=== PATIENT | female | born 1975 | race African-American/Black ===

== ENCOUNTER 2019-09-13 06:31 | Observation (INO) ==
[2019-09-13] MEDS ORDERED: NITROGLYCERIN 2% OINT 1 INCH/GM PACK TOP STA (06:53)
[2019-09-13] MEDS ORDERED: ASPIRIN 325 MG TABLET PO STA (06:53)
[2019-09-13 07:30] LABS: Partial Thromboplastin Time 25.3 SECS (20.8-36.0)
[2019-09-13 08:40] LABS: Basophils % 0.4 % (0.0-0.8); Eosinophils # 0.1 10*3/uL (0.0-0.87); Eosinophils % 0.9 % (0.00-10.9); Hematocrit 38.8 VOL% (35.7-47.0); Hemoglobin 12.9 GM/DL (12.0-16.0); Immature Granulocytes % 0.4 %; Immature Granulocytes Absolute 0.03 #; Lymphocytes # 2.2 10*3/uL (1.4-4.0); Lymphocytes % 25.5 % (21.3-54.2); Mean Corpuscular HGB Conc 33.2 GM/DL (32-36); Mean Corpuscular Volume 81.3 FL (87-102); Mean Platelet Volume 10.2 FL (9.6-12.0); Monocytes % 10.4 % (1.7-12.7); Neutrophils % 62.4 % (38.7-73.9); Platelet Count 356 T/CUMM (130-400); Red Blood Count 4.77 MC/CUMM (3.8-5.5); Red Cell Distribution Width 16.9 % (9.3-17.3); White Blood Count 8.4 T/CUMM (4-12)
[2019-09-13 09:02] LABS: Alanine Aminotransferase 19 U/L (13-56); Alkaline Phosphatase 107 U/L (45-117); Aspartate Amino Transferase 13 U/L (0-37); Bilirubin,Total < 0.39 MG/DL (0.2-1.0); Blood Urea Nitrogen 10 MG/DL (7-18); Calcium 9.2 MG/DL (8.5-10.1); Estimated Glom Filtration Rate 106 ML/MIN; Glucose 130 MG/DL (74-106); Osmolality,Calculated 286.8 MOS/KG (273-304); Total Protein 7.8 G/DL (6.4-8.3)
[2019-09-13] MEDS ORDERED: NITROGLYCERIN SL 0.4 MG TABLET SL PRN (09:23)
[2019-09-13] MEDS ORDERED: NICOTINE 21 MG/24 HR PATCH TRANSDERM PRN (09:23)
[2019-09-13] MEDS ORDERED: DOCUSATE SODIUM 100 MG CAPSULE PO PRN (09:23)
[2019-09-13] MEDS ORDERED: ONDANSETRON 4 MG/2 ML VIAL IV PRN (09:23)
[2019-09-13] MEDS ORDERED: ALBUTEROL/IPRATROPIUM 3 ML NEB RESP TX PRN (09:44)
[2019-09-13 10:02] LABS: Risk Ratio 3.49; Thyroid Stimulating Hormone 4.86 uIU/ml (0.358-3.74); VLDL CHOLESTEROL 18.2 MG/DL
[2019-09-13] MEDS: FUROSEMIDE 40 MG/4 ML VIAL IV SCH (11:50)
[2019-09-13] MEDS: ENOXAPARIN 40 MG/0.4 ML SYRINGE SUBCUT SCH (11:51)
[2019-09-13] MEDS: ACETAMINOPHEN 325 MG TABLET PO PRN (11:52)
[2019-09-13] MEDS: METOPROLOL TARTRATE 50 MG TABLET PO SCH ×2 (11:53→20:42)
[2019-09-13] MEDS: LISINOPRIL 5 MG TABLET PO SCH (11:53)
[2019-09-13] MEDS ORDERED: MAGNESIUM SULF RIDER 4 GM in PREMIX 1 EACH IV PRN (12:10)
[2019-09-13] MEDS ORDERED: MAGNESIUM SULF RIDER 2 GM in PREMIX 1 EACH IV PRN (12:10)
[2019-09-13 13:21] LABS: Apearance,Urine CLEAR (Clear); Bacteria,Urine Occasional /HPF (Few); Bilirubin,Urine Negative (Negative); Blood, Urine Negative (Negative); Glucose,Urine (UA) Negative (Negative); Ketones,Urine Negative (Negative); Mucus,Urine Occasional /LPF (Occasional); Nitrite,Urine Negative (Negative); Protein,Urine Negative; RBC,Urine 3 /HPF (0-4); Squamous Epithelial Cell,Urine Occasional /HPF (0-10); Urine Color Yellow (Yellow); Urine Specific Gravity 1.017 (1.001-1.035); Urine Urobilinogen < 2.0 EU/DL (0.2-1.0); WBC,Urine <1 /HPF (0-6)
[2019-09-13 13:28] LABS: Barbiturates Screen,Urine Negative (Negative); Benzodiazepines Screen,Urine Negative (Negative); Cannabinoid Screen,Urine Negative (Negative); Opiate Screen,Urine Negative (Negative); Phencyclidine Screen,Urine Negative (Negative)
[2019-09-13] MEDS: POTASSIUM CHLORIDE 20 MEQ TABLET PO PRN ×3 (15:54→23:10)
[2019-09-13] MEDS: SIMVASTATIN 40 MG TABLET PO SCH (20:42)
[2019-09-13] MEDS: hydroCHLOROthiazide 25 MG TABLET PO SCH (20:42)
[2019-09-14 04:32] LABS: Basophils # 0.1 10*3/uL (0.0-0.2); Basophils % 1.4 % (0.0-0.8); Eosinophils # 0.2 10*3/uL (0.0-0.87); Eosinophils % 2.3 % (0.00-10.9); Hematocrit 39.3 VOL% (35.7-47.0); Hemoglobin 12.7 GM/DL (12.0-16.0); Immature Granulocytes % 0.3 %; Immature Granulocytes Absolute 0.02 #; Lymphocytes # 2.6 10*3/uL (1.4-4.0); Lymphocytes % 40.6 % (21.3-54.2); Mean Corpuscular HGB Conc 32.3 GM/DL (32-36); Mean Corpuscular Volume 81.5 FL (87-102); Mean Platelet Volume 9.6 FL (9.6-12.0); Monocytes % 10.5 % (1.7-12.7); NRBC # 0.04 10*3/uL; Neutrophils % 44.9 % (38.7-73.9); Platelet Count 348 T/CUMM (130-400); Red Blood Count 4.82 MC/CUMM (3.8-5.5); Red Cell Distribution Width 16.6 % (9.3-17.3); White Blood Count 6.4 T/CUMM (4-12)
[2019-09-14 05:02] LABS: Calcium 9.3 MG/DL (8.5-10.1); Osmolality,Calculated 283.1 MOS/KG (273-304)
[2019-09-14] MEDS: LISINOPRIL 5 MG TABLET PO SCH (08:57)
[2019-09-14] MEDS: METOPROLOL TARTRATE 50 MG TABLET PO SCH ×2 (08:57→20:43)
[2019-09-14] MEDS: PANTOPRAZOLE 40 MG TABLET PO SCH (08:57)
[2019-09-14] MEDS: ASPIRIN EC 81 MG TABLET PO SCH (08:57)
[2019-09-14] MEDS: ENOXAPARIN 40 MG/0.4 ML SYRINGE SUBCUT SCH (08:58)
[2019-09-14] MEDS: FUROSEMIDE 40 MG/4 ML VIAL IV SCH (08:58)
[2019-09-14] MEDS: DOXYCYCLINE HYCLATE 100 MG CAPSULE PO SCH (20:43)
[2019-09-14] MEDS: SIMVASTATIN 40 MG TABLET PO SCH (20:43)
[2019-09-14] MEDS: hydroCHLOROthiazide 25 MG TABLET PO SCH (20:43)
[2019-09-15 05:43] LABS: Basophils % 0.6 % (0.0-0.8); Eosinophils # 0.2 10*3/uL (0.0-0.87); Eosinophils % 2.3 % (0.00-10.9); Hematocrit 40.7 VOL% (35.7-47.0); Hemoglobin 13.2 GM/DL (12.0-16.0); Immature Granulocytes % 0.5 %; Immature Granulocytes Absolute 0.03 #; Lymphocytes # 2.4 10*3/uL (1.4-4.0); Lymphocytes % 36.5 % (21.3-54.2); Mean Corpuscular HGB Conc 32.4 GM/DL (32-36); Mean Corpuscular Volume 81.6 FL (87-102); Mean Platelet Volume 10.5 FL (9.6-12.0); Monocytes % 10.4 % (1.7-12.7); Neutrophils % 49.7 % (38.7-73.9); Platelet Count 349 T/CUMM (130-400); Red Blood Count 4.99 MC/CUMM (3.8-5.5); White Blood Count 6.6 T/CUMM (4-12)
[2019-09-15 05:58] LABS: Calcium 8.8 MG/DL (8.5-10.1); Osmolality,Calculated 280.5 MOS/KG (273-304)
[2019-09-15 07:53] VITALS: BP 150/83
[2019-09-15] MEDS: DOXYCYCLINE HYCLATE 100 MG CAPSULE PO SCH (08:35)
[2019-09-15] MEDS: PANTOPRAZOLE 40 MG TABLET PO SCH (08:35)
[2019-09-15] MEDS: METOPROLOL TARTRATE 50 MG TABLET PO SCH (08:35)
[2019-09-15] MEDS: LISINOPRIL 5 MG TABLET PO SCH (08:36)
[2019-09-15] MEDS: ACETAMINOPHEN 325 MG TABLET PO PRN (08:36)
[2019-09-15] MEDS: ASPIRIN EC 81 MG TABLET PO SCH (08:36)
[2019-09-15] MEDS: FUROSEMIDE 40 MG/4 ML VIAL IV SCH (08:37)
[2019-09-15] MEDS: ENOXAPARIN 40 MG/0.4 ML SYRINGE SUBCUT SCH (08:49)
== END 2019-09-15 11:30 | disposition home or self-care (01) ==
LOC: N.ED 06:31 → N.EDINP 06:31 → N.2W 11:04 → N.TELES 09-14 10:31
PROVIDERS: ADMIT Internal Medicine; ATTEND Internal Medicine

== ENCOUNTER 2020-02-12 10:16 | Observation (INO) ==
[2020-02-12 10:43] LABS: Basophils % 0.7 % (0.0-0.8); Eosinophils # 0.1 10*3/uL (0.0-0.87); Eosinophils % 0.9 % (0.00-10.9); Hematocrit 41.6 VOL% (35.7-47.0); Hemoglobin 14.1 GM/DL (12.0-16.0); Immature Granulocytes % 0.4 %; Immature Granulocytes Absolute 0.02 #; Lymphocytes # 1.7 10*3/uL (1.4-4.0); Lymphocytes % 29.9 % (21.3-54.2); Mean Corpuscular HGB Conc 33.9 GM/DL (32-36); Mean Corpuscular Volume 86.3 FL (87-102); Mean Platelet Volume 9.8 FL (9.6-12.0); Monocytes % 6.3 % (1.7-12.7); Neutrophils % 61.8 % (38.7-73.9); Platelet Count 322 T/CUMM (130-400); Red Blood Count 4.82 MC/CUMM (3.8-5.5); Red Cell Distribution Width 15.2 % (9.3-17.3); White Blood Count 5.6 T/CUMM (4-12)
[2020-02-12] MEDS ORDERED: SODIUM CHLORIDE 0.9% 500 ML IV STA (10:48)
[2020-02-12] MEDS ORDERED: ONDANSETRON 4 MG/2 ML VIAL IV STA (10:48)
[2020-02-12 11:10] LABS: Alanine Aminotransferase 28 U/L (13-56); Albumin 3.3 G/DL (3.4-5.0); Alkaline Phosphatase 85 U/L (45-117); Aspartate Amino Transferase 16 U/L (0-37); Bilirubin,Total < 0.39 MG/DL (0.2-1.0); Blood Urea Nitrogen 11 MG/DL (7-18); Calcium 9.1 MG/DL (8.5-10.1); Estimated Glom Filtration Rate 117 ML/MIN; Glucose 101 MG/DL (74-106); Osmolality,Calculated 279.3 MOS/KG (273-304)
[2020-02-12 12:08] LABS: Apearance,Urine Slightly Hazy (Clear); Bacteria,Urine Occasional /HPF (Few); Bilirubin,Urine Negative (Negative); Blood, Urine Negative (Negative); Glucose,Urine (UA) Negative (Negative); Ketones,Urine Negative (Negative); Mucus,Urine Occasional /LPF (Occasional); Nitrite,Urine Negative (Negative); Protein,Urine Negative; RBC,Urine 1 /HPF (0-4); Squamous Epithelial Cell,Urine Occasional /HPF (0-10); Urine Color Yellow (Yellow); Urine Specific Gravity 1.013 (1.001-1.035); Urine Urobilinogen < 2.0 EU/DL (0.2-1.0); WBC,Urine 2 /HPF (0-6)
[2020-02-12] MEDS ORDERED: METHOCARBAMOL 1,000 MG/10 ML VIAL IV STA (12:14)
[2020-02-12] MEDS ORDERED: KETOROLAC 30 MG/1 ML VIAL IV STA (12:14)
[2020-02-12 12:24] LABS: Barbiturates Screen,Urine Negative (Negative); Benzodiazepines Screen,Urine Negative (Negative); Cannabinoid Screen,Urine Negative (Negative); Opiate Screen,Urine Negative (Negative); Phencyclidine Screen,Urine Negative (Negative)
[2020-02-12] MEDS ORDERED: ASPIRIN EC 325 MG TABLET PO STA (12:26)
[2020-02-12] MEDS ORDERED: ZALEPLON 5 MG CAPSULE PO PRN (13:12)
[2020-02-12] MEDS ORDERED: ACETAMINOPHEN 325 MG TABLET PO PRN (13:12)
[2020-02-12] MEDS ORDERED: DOCUSATE SODIUM 100 MG CAPSULE PO PRN (13:12)
[2020-02-12] MEDS ORDERED: ONDANSETRON 4 MG/2 ML VIAL IV PRN (13:12)
[2020-02-12] MEDS ORDERED: hydrALAZINE 20 MG/1 ML VIAL IV PRN (13:39)
[2020-02-12 14:09] LABS: Risk Ratio 2.62; Thyroid Stimulating Hormone 3.09 uIU/ml (0.358-3.74); VLDL CHOLESTEROL 9.6 MG/DL
[2020-02-12] MEDS: ENOXAPARIN 40 MG/0.4 ML SYRINGE SUBCUT SCH (15:33)
[2020-02-12] MEDS: ALBUTEROL/IPRATROPIUM 3 ML NEB RESP TX SCH ×2 (16:53→20:08)
[2020-02-12 17:04] LABS: Folate 12.5 NG/ML (5.4-24.0)
[2020-02-12] MEDS: FUROSEMIDE 20 MG/2 ML VIAL IV SCH (17:39)
[2020-02-12] MEDS: LEVOFLOXACIN 750 MG TABLET PO SCH (17:39)
[2020-02-12] MEDS: ASCORBIC ACID 500 MG TABLET PO SCH (20:11)
[2020-02-12] MEDS ORDERED: SIMVASTATIN 20 MG TABLET PO SCH (21:00)
[2020-02-12] MEDS ORDERED: amLODIPine 5 MG TABLET PO SCH (21:00)
[2020-02-12] MEDS ORDERED: SERTRALINE 50 MG TABLET PO SCH (21:00)
[2020-02-12] MEDS ORDERED: NF- (Fluticasone Furoate-Vilanterol [Breo Ellipta] 1 inh) INH SCH (21:00)
[2020-02-13] MEDS: ALBUTEROL/IPRATROPIUM 3 ML NEB RESP TX SCH ×3 (01:25→13:33)
[2020-02-13 04:42] LABS: Basophils # 0.1 10*3/uL (0.0-0.2); Basophils % 0.9 % (0.0-0.8); Eosinophils # 0.2 10*3/uL (0.0-0.87); Eosinophils % 2.8 % (0.00-10.9); Hematocrit 42.1 VOL% (35.7-47.0); Hemoglobin 13.7 GM/DL (12.0-16.0); Immature Granulocytes % 0.2 %; Immature Granulocytes Absolute 0.01 #; Mean Corpuscular HGB Conc 32.5 GM/DL (32-36); Mean Corpuscular Volume 88.4 FL (87-102); Mean Platelet Volume 10.2 FL (9.6-12.0); Monocytes % 10.1 % (1.7-12.7); Platelet Count 318 T/CUMM (130-400); Red Blood Count 4.76 MC/CUMM (3.8-5.5); White Blood Count 5.8 T/CUMM (4-12)
[2020-02-13 04:58] LABS: Osmolality,Calculated 279.4 MOS/KG (273-304)
[2020-02-13] MEDS ORDERED: PANTOPRAZOLE 40 MG TABLET PO SCH (09:00)
[2020-02-13] MEDS ORDERED: FERROUS SULFATE 325 MG TABLET PO SCH (09:00)
[2020-02-13] MEDS ORDERED: MAGNESIUM OXIDE 400 MG TABLET PO SCH (09:00)
[2020-02-13] MEDS: FUROSEMIDE 20 MG/2 ML VIAL IV SCH ×2 (09:55→18:03)
[2020-02-13] MEDS: ASCORBIC ACID 500 MG TABLET PO SCH (09:57)
[2020-02-13] MEDS: LEVOFLOXACIN 750 MG TABLET PO SCH (09:57)
[2020-02-13] MEDS: ENOXAPARIN 40 MG/0.4 ML SYRINGE SUBCUT SCH (13:13)
[2020-02-13 16:09] VITALS: BP 137/85
[2020-02-16] MEDS ORDERED: ERGOCALCIFEROL 50,000 UNIT CAPSULE PO SCH (13:07)
== END 2020-02-13 18:03 | disposition home or self-care (01) ==
LOC: N.ED 10:16 → N.EDINP 10:16 → N.2W 13:15
PROVIDERS: ADMIT Internal Medicine; ATTEND Internal Medicine

== ENCOUNTER 2020-02-22 14:30 | Inpatient (IN) ==
[2020-02-22 15:18] LABS: Basophils # 0.1 10*3/uL (0.0-0.2); Basophils % 0.5 % (0.0-0.8); Eosinophils # 0.1 10*3/uL (0.0-0.87); Eosinophils % 0.5 % (0.00-10.9); Hematocrit 40.5 VOL% (35.7-47.0); Hemoglobin 13.4 GM/DL (12.0-16.0); Immature Granulocytes % 0.5 %; Immature Granulocytes Absolute 0.05 #; Lymphocytes # 2.1 10*3/uL (1.4-4.0); Lymphocytes % 22.4 % (21.3-54.2); Mean Corpuscular HGB Conc 33.1 GM/DL (32-36); Mean Corpuscular Volume 87.5 FL (87-102); Mean Platelet Volume 10.2 FL (9.6-12.0); Monocytes % 6.9 % (1.7-12.7); Neutrophils % 69.2 % (38.7-73.9); Platelet Count 331 T/CUMM (130-400); Red Blood Count 4.63 MC/CUMM (3.8-5.5); Red Cell Distribution Width 15.2 % (9.3-17.3); White Blood Count 9.5 T/CUMM (4-12)
[2020-02-22 15:43] LABS: Albumin 3.4 G/DL (3.4-5.0); Bilirubin,Total 0.4 MG/DL (0.2-1.0); Osmolality,Calculated 274.7 MOS/KG (273-304); Total Protein 7.5 G/DL (6.4-8.3)
[2020-02-22] MEDS ORDERED: cefTRIAXone 1,000 MG in SODIUM CHLORIDE 0.9% 100 ML IV STA (16:49)
[2020-02-22] MEDS ORDERED: AZITHROMYCIN 250 MG TABLET PO STA (16:49)
[2020-02-22] MEDS ORDERED: GLUCAGON 1 MG VIAL IM PRN (18:15)
[2020-02-22] MEDS ORDERED: DEXTROSE 10% 250 ML BAG IV PRN (18:15)
[2020-02-22] MEDS ORDERED: hydrALAZINE 20 MG/1 ML VIAL IV PRN (18:49)
[2020-02-22] MEDS ORDERED: HYDROXYCHLOROQUINE 200 MG TABLET PO SCH (20:00)
[2020-02-22] MEDS ORDERED: amLODIPine 5 MG TABLET PO SCH (21:00)
[2020-02-22] MEDS: SIMVASTATIN 20 MG TABLET PO SCH (21:30)
[2020-02-22] MEDS: ASCORBIC ACID 500 MG TABLET PO SCH (21:30)
[2020-02-22] MEDS: SERTRALINE 50 MG TABLET PO SCH (22:16)
[2020-02-22] MEDS: Fluticasone Furoate-Vilanterol [Breo Ellipta] 1 inh INH SCH (22:16)
[2020-02-23 06:44] LABS: Albumin 2.7 G/DL (3.4-5.0); Bilirubin,Total 0.6 MG/DL (0.2-1.0); Calcium 8.9 MG/DL (8.5-10.1); Osmolality,Calculated 272.7 MOS/KG (273-304)
[2020-02-23] MEDS ORDERED: predniSONE 20 MG TABLET PO SCH (09:00)
[2020-02-23] MEDS ORDERED: ERGOCALCIFEROL 50,000 UNIT CAPSULE PO SCH (09:00)
[2020-02-23] MEDS: MAGNESIUM OXIDE 400 MG TABLET PO SCH (11:16)
[2020-02-23] MEDS: FERROUS SULFATE 325 MG TABLET PO SCH (11:16)
[2020-02-23] MEDS: ASPIRIN EC 325 MG TABLET PO SCH (11:16)
[2020-02-23] MEDS: ASCORBIC ACID 500 MG TABLET PO SCH ×2 (11:17→21:16)
[2020-02-23] MEDS: AZITHROMYCIN 250 MG TABLET PO SCH (11:17)
[2020-02-23 13:24] LABS: Basophils # 0.1 10*3/uL (0.0-0.2); Basophils % 0.8 % (0.0-0.8); Eosinophils # 0.1 10*3/uL (0.0-0.87); Eosinophils % 2.2 % (0.00-10.9); Hematocrit 40.4 VOL% (35.7-47.0); Hemoglobin 13.1 GM/DL (12.0-16.0); Immature Granulocytes % 0.3 %; Immature Granulocytes Absolute 0.02 #; Lymphocytes # 1.9 10*3/uL (1.4-4.0); Lymphocytes % 31.3 % (21.3-54.2); Mean Corpuscular HGB Conc 32.4 GM/DL (32-36); Mean Corpuscular Volume 88.8 FL (87-102); Mean Platelet Volume 9.9 FL (9.6-12.0); Neutrophils % 57.4 % (38.7-73.9); Platelet Count 327 T/CUMM (130-400); Red Blood Count 4.55 MC/CUMM (3.8-5.5); Red Cell Distribution Width 15.2 % (9.3-17.3)
[2020-02-23] MEDS: ALUMINUM/MAGNES/SIMETH MAX STR 30 ML UDCUP PO PRN (13:54)
[2020-02-23] MEDS: amLODIPine 5 MG TABLET PO SCH (13:54)
[2020-02-23] MEDS ORDERED: KETOROLAC 10 MG TABLET PO PRN (15:24)
[2020-02-23] MEDS ORDERED: ACETAMINOPHEN 325 MG TABLET PO PRN (16:58)
[2020-02-23] MEDS: SIMVASTATIN 20 MG TABLET PO SCH (21:16)
[2020-02-23] MEDS: SERTRALINE 50 MG TABLET PO SCH (21:16)
[2020-02-23] MEDS: Fluticasone Furoate-Vilanterol [Breo Ellipta] 1 inh INH SCH (21:16)
[2020-02-24] MEDS: ALUMINUM/MAGNES/SIMETH MAX STR 30 ML UDCUP PO PRN ×3 (00:44→20:21)
[2020-02-24 05:06] LABS: Basophils % 0.7 % (0.0-0.8); Eosinophils # 0.1 10*3/uL (0.0-0.87); Eosinophils % 2.4 % (0.00-10.9); Hematocrit 39.4 VOL% (35.7-47.0); Hemoglobin 12.9 GM/DL (12.0-16.0); Immature Granulocytes % 0.4 %; Immature Granulocytes Absolute 0.02 #; Lymphocytes # 2.5 10*3/uL (1.4-4.0); Lymphocytes % 45.3 % (21.3-54.2); Mean Corpuscular HGB Conc 32.7 GM/DL (32-36); Mean Corpuscular Volume 88.5 FL (87-102); Mean Platelet Volume 10.3 FL (9.6-12.0); Monocytes % 11.3 % (1.7-12.7); Neutrophils % 39.9 % (38.7-73.9); Platelet Count 322 T/CUMM (130-400); Red Blood Count 4.45 MC/CUMM (3.8-5.5); Red Cell Distribution Width 15.1 % (9.3-17.3); White Blood Count 5.5 T/CUMM (4-12)
[2020-02-24 05:36] LABS: Albumin 2.9 G/DL (3.4-5.0); Bilirubin,Total 0.6 MG/DL (0.2-1.0); Calcium 8.9 MG/DL (8.5-10.1); Osmolality,Calculated 276.5 MOS/KG (273-304); Total Protein 6.8 G/DL (6.4-8.3)
[2020-02-24] MEDS: AZITHROMYCIN 250 MG TABLET PO SCH (08:52)
[2020-02-24] MEDS: FERROUS SULFATE 325 MG TABLET PO SCH (08:52)
[2020-02-24] MEDS: MAGNESIUM OXIDE 400 MG TABLET PO SCH (08:52)
[2020-02-24] MEDS: ASPIRIN EC 325 MG TABLET PO SCH (08:52)
[2020-02-24] MEDS: amLODIPine 5 MG TABLET PO SCH (08:52)
[2020-02-24] MEDS: ASCORBIC ACID 500 MG TABLET PO SCH ×2 (08:52→20:21)
[2020-02-24] MEDS ORDERED: CALCIUM CARBONATE CHEW 500 MG TABLET PO ONE (17:01)
[2020-02-24] MEDS: SIMVASTATIN 20 MG TABLET PO SCH (20:21)
[2020-02-24] MEDS: SERTRALINE 50 MG TABLET PO SCH (20:21)
[2020-02-24] MEDS: Fluticasone Furoate-Vilanterol [Breo Ellipta] 1 inh INH SCH (20:21)
[2020-02-25 05:24] LABS: Basophils # 0.1 10*3/uL (0.0-0.2); Basophils % 0.8 % (0.0-0.8); Eosinophils # 0.2 10*3/uL (0.0-0.87); Eosinophils % 2.8 % (0.00-10.9); Hematocrit 38.8 VOL% (35.7-47.0); Immature Granulocytes % 0.2 %; Immature Granulocytes Absolute 0.01 #; Lymphocytes # 2.4 10*3/uL (1.4-4.0); Lymphocytes % 39.5 % (21.3-54.2); Mean Corpuscular HGB Conc 33.5 GM/DL (32-36); Mean Platelet Volume 10.3 FL (9.6-12.0); Monocytes % 10.9 % (1.7-12.7); Neutrophils % 45.8 % (38.7-73.9); Platelet Count 321 T/CUMM (130-400); Red Blood Count 4.46 MC/CUMM (3.8-5.5); White Blood Count 6.1 T/CUMM (4-12)
[2020-02-25 05:45] LABS: Albumin 2.8 G/DL (3.4-5.0); Bilirubin,Total 0.5 MG/DL (0.2-1.0); Calcium 8.7 MG/DL (8.5-10.1); Osmolality,Calculated 279.3 MOS/KG (273-304); Total Protein 6.8 G/DL (6.4-8.3)
[2020-02-25 07:33] VITALS: BP 132/89
[2020-02-25] MEDS: ASPIRIN EC 325 MG TABLET PO SCH (08:16)
[2020-02-25] MEDS: amLODIPine 5 MG TABLET PO SCH (08:16)
[2020-02-25] MEDS: MAGNESIUM OXIDE 400 MG TABLET PO SCH (08:16)
[2020-02-25] MEDS: AZITHROMYCIN 250 MG TABLET PO SCH (08:16)
[2020-02-25] MEDS: FERROUS SULFATE 325 MG TABLET PO SCH (08:16)
[2020-02-25] MEDS: ASCORBIC ACID 500 MG TABLET PO SCH (08:16)
[2020-02-25] MEDS ORDERED: PANTOPRAZOLE 40 MG TABLET PO SCH (09:00)
[2020-02-25] MEDS: ALUMINUM/MAGNES/SIMETH MAX STR 30 ML UDCUP PO PRN (12:57)
== END 2020-02-25 13:15 | disposition home or self-care (01) | DRG 204 ==
LOC: N.ED 14:30 → N.EDINP 17:00 → SUATTDRO 17:00 → N.2E 17:45
PROVIDERS: ADMIT Internal Medicine; ATTEND Internal Medicine

== ENCOUNTER 2020-04-30 01:35 | Observation (INO) ==
[2020-04-30] MEDS ORDERED: ASPIRIN 325 MG TABLET PO STA (02:01)
[2020-04-30 02:16] LABS: Basophils % 0.6 % (0.0-0.8); Eosinophils # 0.2 10*3/uL (0.0-0.87); Eosinophils % 2.4 % (0.00-10.9); Hematocrit 39.5 VOL% (35.7-47.0); Hemoglobin 13.1 GM/DL (12.0-16.0); Immature Granulocytes % 0.2 %; Immature Granulocytes Absolute 0.01 #; Lymphocytes # 2.5 10*3/uL (1.4-4.0); Mean Corpuscular HGB Conc 33.2 GM/DL (32-36); Mean Corpuscular Volume 86.6 FL (87-102); Mean Platelet Volume 10.1 FL (9.6-12.0); Monocytes % 7.7 % (1.7-12.7); Neutrophils % 49.1 % (38.7-73.9); Platelet Count 319 T/CUMM (130-400); Red Blood Count 4.56 MC/CUMM (3.8-5.5); Red Cell Distribution Width 13.9 % (9.3-17.3); White Blood Count 6.3 T/CUMM (4-12)
[2020-04-30 02:22] LABS: INR 1.1; PT Patient Result 11.2 SECS (9.8-11.9)
[2020-04-30 02:43] LABS: Alanine Aminotransferase 25 U/L (13-56); Albumin 3.2 G/DL (3.4-5.0); Alkaline Phosphatase 107 U/L (45-117); Aspartate Amino Transferase 20 U/L (0-37); Bilirubin,Total < 0.39 MG/DL (0.2-1.0); Blood Urea Nitrogen 10 MG/DL (7-18); Calcium 8.7 MG/DL (8.5-10.1); Estimated Glom Filtration Rate 118 ML/MIN; Glucose 107 MG/DL (74-106); Osmolality,Calculated 273.7 MOS/KG (273-304); Total Protein 7.7 G/DL (6.4-8.3)
[2020-04-30] MEDS ORDERED: POTASSIUM CHLORIDE 20 MEQ TABLET PO STA (02:50)
[2020-04-30 02:58] LABS: Ferritin 76.1 ng/ml (8-252)
[2020-04-30] MEDS ORDERED: MAGNESIUM SULF RIDER 2 GM in PREMIX 1 EACH IV PRN (10:34)
[2020-04-30] MEDS ORDERED: ALBUTEROL/IPRATROPIUM 3 ML NEB RESP TX SCH (10:34)
[2020-04-30] MEDS ORDERED: DOCUSATE SODIUM 100 MG CAPSULE PO PRN (10:34)
[2020-04-30] MEDS ORDERED: ACETAMINOPHEN 325 MG TABLET PO PRN (10:34)
[2020-04-30] MEDS ORDERED: MAGNESIUM SULF RIDER 4 GM in PREMIX 1 EACH IV PRN (10:34)
[2020-04-30] MEDS ORDERED: NITROGLYCERIN SL 0.4 MG TABLET SL PRN (10:34)
[2020-04-30] MEDS ORDERED: ONDANSETRON 4 MG/2 ML VIAL IV PRN (10:34)
[2020-04-30 10:35] LABS: ABG HCO3 24.5 MMOL/L (20-26); ABG Oxygen Saturation 97.9 % (95-100); ABG PCO2 39.2 MM HG (35-48); ABG PH 7.413 (7.35-7.45); ABG PO2 111.2 MM HG (80-95); ABG TCO2 25.7 MMOL/L (23-27)
[2020-04-30 10:56] LABS: Thyroid Stimulating Hormone 2.51 uIU/ml (0.358-3.74)
[2020-04-30] MEDS: ENOXAPARIN 40 MG/0.4 ML SYRINGE SUBCUT SCH (13:52)
[2020-04-30] MEDS: PANTOPRAZOLE 40 MG TABLET PO SCH (13:53)
[2020-04-30] MEDS ORDERED: FUROSEMIDE 40 MG/4 ML VIAL IV ONE (18:00)
[2020-04-30] MEDS: POTASSIUM CHLORIDE 20 MEQ TABLET PO PRN ×2 (19:50→22:45)
[2020-04-30] MEDS: SIMVASTATIN 20 MG TABLET PO SCH (21:01)
[2020-04-30] MEDS: ASCORBIC ACID 500 MG TABLET PO SCH (21:01)
[2020-04-30] MEDS: amLODIPine 5 MG TABLET PO SCH (21:01)
[2020-05-01] MEDS: POTASSIUM CHLORIDE 20 MEQ TABLET PO PRN ×2 (00:37→04:45)
[2020-05-01 07:06] LABS: Basophils % 0.6 % (0.0-0.8); Eosinophils # 0.2 10*3/uL (0.0-0.87); Eosinophils % 3.3 % (0.00-10.9); Hematocrit 40.5 VOL% (35.7-47.0); Hemoglobin 13.4 GM/DL (12.0-16.0); Immature Granulocytes % 0.2 %; Immature Granulocytes Absolute 0.01 #; Lymphocytes # 2.6 10*3/uL (1.4-4.0); Lymphocytes % 47.8 % (21.3-54.2); Mean Corpuscular HGB Conc 33.1 GM/DL (32-36); Mean Corpuscular Volume 87.1 FL (87-102); Mean Platelet Volume 10.6 FL (9.6-12.0); Monocytes % 11.5 % (1.7-12.7); Neutrophils % 36.6 % (38.7-73.9); Platelet Count 313 T/CUMM (130-400); Red Blood Count 4.65 MC/CUMM (3.8-5.5); Red Cell Distribution Width 14.6 % (9.3-17.3); White Blood Count 5.4 T/CUMM (4-12)
[2020-05-01 07:20] LABS: Osmolality,Calculated 276.4 MOS/KG (273-304)
[2020-05-01 07:48] LABS: Anisocytosis Slight; Eosinophils 3 % (0-10); Lymphocytes 50 % (20-55); Macrocytosis 1+; Platelet Estimate Normal; Segmented Neutrophils 37 % (50-85); Target Cells Few; Total Cells Counted 100
[2020-05-01] MEDS: ASPIRIN CHEW 81 MG TABLET PO SCH (08:21)
[2020-05-01] MEDS: PANTOPRAZOLE 40 MG TABLET PO SCH (08:21)
[2020-05-01] MEDS: FERROUS SULFATE 325 MG TABLET PO SCH (08:22)
[2020-05-01] MEDS: ASCORBIC ACID 500 MG TABLET PO SCH ×2 (08:22→21:00)
[2020-05-01] MEDS: ENOXAPARIN 40 MG/0.4 ML SYRINGE SUBCUT SCH (08:22)
[2020-05-01] MEDS: GABAPENTIN 100 MG CAPSULE PO SCH ×2 (15:15→21:00)
[2020-05-01] MEDS ORDERED: MAGNESIUM CITRATE 300 ML BOTTLE PO ONE (17:30)
[2020-05-01] MEDS: SIMVASTATIN 20 MG TABLET PO SCH (21:00)
[2020-05-01] MEDS: amLODIPine 5 MG TABLET PO SCH (21:00)
[2020-05-02] MEDS: ASCORBIC ACID 500 MG TABLET PO SCH (09:40)
[2020-05-02] MEDS: ASPIRIN CHEW 81 MG TABLET PO SCH (09:41)
[2020-05-02] MEDS: FERROUS SULFATE 325 MG TABLET PO SCH (09:41)
[2020-05-02] MEDS: ENOXAPARIN 40 MG/0.4 ML SYRINGE SUBCUT SCH (09:41)
[2020-05-02] MEDS: GABAPENTIN 100 MG CAPSULE PO SCH (09:41)
[2020-05-02] MEDS: PANTOPRAZOLE 40 MG TABLET PO SCH (09:41)
[2020-05-02 09:52] VITALS: BP 149/93
[2020-05-02] MEDS ORDERED: ALUM/MAG/SIMETH/LIDO VISC 1:1 30 ML BOTTLE PO ONE (10:25)
== END 2020-05-02 13:42 | disposition home or self-care (01) ==
LOC: N.EDINP 01:35 → N.ED 01:35 → N.2E 10:24
PROVIDERS: ADMIT Family Medicine; ATTEND Family Medicine

== ENCOUNTER 2020-07-31 01:19 | Observation (INO) ==
[2020-07-31] MEDS ORDERED: HYDROmorphone 2 MG/1 ML VIAL IV STA (01:43)
[2020-07-31] MEDS ORDERED: ASPIRIN 325 MG TABLET PO STA (01:43)
[2020-07-31] MEDS ORDERED: ALUM/MAG/SIMETH/LIDO VISC 1:1 30 ML BOTTLE PO STA (01:43)
[2020-07-31] MEDS ORDERED: NITROGLYCERIN 2% OINT 1 INCH/GM PACK TOP STA (01:43)
[2020-07-31] MEDS ORDERED: ONDANSETRON 4 MG/2 ML VIAL IV STA (01:43)
[2020-07-31 02:04] LABS: Basophils % 0.4 % (0.0-0.8); Eosinophils # 0.1 10*3/uL (0.0-0.87); Eosinophils % 1.3 % (0.00-10.9); Hematocrit 39.9 VOL% (35.7-47.0); Hemoglobin 13.6 GM/DL (12.0-16.0); Immature Granulocytes % 0.5 %; Immature Granulocytes Absolute 0.05 #; Lymphocytes % 29.9 % (21.3-54.2); Mean Corpuscular HGB Conc 34.1 GM/DL (32-36); Mean Corpuscular Volume 87.5 FL (87-102); Mean Platelet Volume 10.7 FL (9.6-12.0); Monocytes % 6.4 % (1.7-12.7); Neutrophils % 61.5 % (38.7-73.9); Platelet Count 356 T/CUMM (130-400); Red Blood Count 4.56 MC/CUMM (3.8-5.5); Red Cell Distribution Width 14.7 % (9.3-17.3); White Blood Count 9.9 T/CUMM (4-12)
[2020-07-31 02:21] LABS: INR 1.1; PT Patient Result 11.7 SECS (9.8-11.9)
[2020-07-31 02:46] LABS: Alanine Aminotransferase 21 U/L (13-56); Albumin 3.1 G/DL (3.4-5.0); Alkaline Phosphatase 108 U/L (45-117); Aspartate Amino Transferase 12 U/L (0-37); Bilirubin,Total < 0.39 MG/DL (0.2-1.0); Blood Urea Nitrogen 14 MG/DL (7-18); Estimated Glom Filtration Rate 136 ML/MIN; Glucose 101 MG/DL (74-106); Osmolality,Calculated 281.3 MOS/KG (273-304); Total Protein 7.6 G/DL (6.4-8.3)
[2020-07-31] MEDS ORDERED: ONDANSETRON 4 MG/2 ML VIAL IV PRN (03:33)
[2020-07-31] MEDS ORDERED: DEXTROSE 50% 25 GM/50 ML VIAL IV PRN (03:33)
[2020-07-31] MEDS ORDERED: GLUCAGON 1 MG VIAL IM PRN (03:33)
[2020-07-31 04:53] LABS: Risk Ratio 2.63; VLDL CHOLESTEROL 13.8 MG/DL
[2020-07-31] MEDS ORDERED: FUROSEMIDE 40 MG TABLET PO PRN (07:49)
[2020-07-31] MEDS ORDERED: diphenhydrAMINE CAP 25 MG CAPSULE PO PRN (07:49)
[2020-07-31] MEDS ORDERED: PROMETHAZINE 25 MG TABLET PO PRN (07:49)
[2020-07-31] MEDS ORDERED: ENOXAPARIN 120 MG/0.8 ML SYRINGE SUBCUT STA (08:32)
[2020-07-31] MEDS: ENOXAPARIN 100 MG/ML SYRINGE SUBCUT STA ×2 (08:32→16:54)
[2020-07-31] MEDS: NITROGLYCERIN 2% OINT 1 INCH/GM PACK TOP SCH ×2 (08:47→13:36)
[2020-07-31] MEDS: POTASSIUM CHLORIDE 20 MEQ PACK PO SCH ×2 (08:55→21:36)
[2020-07-31] MEDS: ASPIRIN EC 325 MG TABLET PO SCH (08:55)
[2020-07-31] MEDS ORDERED: PANTOPRAZOLE 40 MG TABLET PO SCH (09:00)
[2020-07-31 09:57] LABS: Barbiturates Screen,Urine Negative (Negative); Benzodiazepines Screen,Urine Negative (Negative); Cannabinoid Screen,Urine Negative (Negative); Opiate Screen,Urine Positive (Negative); Phencyclidine Screen,Urine Negative (Negative)
[2020-07-31] MEDS ORDERED: ALBUTEROL 2.5 MG/3 ML NEB RESP TX PRN (11:08)
[2020-07-31] MEDS ORDERED: KETOROLAC 15 MG/1 ML VIAL IV PRN (16:53)
[2020-07-31] MEDS: ENOXAPARIN 150 MG/ML SYRINGE SUBCUT SCH (17:18)
[2020-07-31] MEDS ORDERED: BREO INH SCH (21:00)
[2020-07-31] MEDS ORDERED: amLODIPine 5 MG TABLET PO SCH (21:00)
[2020-07-31] MEDS ORDERED: SIMVASTATIN 20 MG TABLET PO SCH (21:00)
[2020-07-31] MEDS: PANTOPRAZOLE 40 MG TABLET PO SCH (21:36)
[2020-07-31] MEDS: ASCORBIC ACID 500 MG TABLET PO SCH (21:36)
[2020-07-31] MEDS: GABAPENTIN 100 MG CAPSULE PO SCH (21:36)
[2020-08-01] MEDS: ENOXAPARIN 150 MG/ML SYRINGE SUBCUT SCH (02:26)
[2020-08-01] MEDS ORDERED: ENOXAPARIN 40 MG/0.4 ML SYRINGE SUBCUT SCH (07:30)
[2020-08-01] MEDS ORDERED: MAGNESIUM OXIDE 400 MG TABLET PO SCH (09:00)
[2020-08-01] MEDS: GABAPENTIN 100 MG CAPSULE PO SCH (10:34)
[2020-08-01] MEDS: POTASSIUM CHLORIDE 20 MEQ PACK PO SCH (10:34)
[2020-08-01] MEDS: ASPIRIN EC 325 MG TABLET PO SCH (10:35)
[2020-08-01] MEDS: PANTOPRAZOLE 40 MG TABLET PO SCH (10:35)
[2020-08-01] MEDS: ASCORBIC ACID 500 MG TABLET PO SCH (10:35)
[2020-08-01 11:30] VITALS: BP 112/70
[2020-08-02] MEDS ORDERED: ERGOCALCIFEROL 50,000 UNIT CAPSULE PO SCH (09:00)
[2020-08-02] MEDS ORDERED: FERROUS SULFATE 325 MG TABLET PO SCH (21:00)
== END 2020-08-01 12:49 | disposition home or self-care (01) ==
LOC: N.EDINP 01:19 → N.ED 01:19 → N.EDINP 15:48 → N.TELEN 16:11
PROVIDERS: ADMIT Emergency Medicine; ATTEND Emergency Medicine

== ENCOUNTER 2021-02-15 04:19 | Observation (INO) ==
[2021-02-15] MEDS ORDERED: ASPIRIN 325 MG TABLET PO STA (04:38)
[2021-02-15 04:47] LABS: Basophils # 0.1 10*3/uL (0.0-0.2); Basophils % 0.7 % (0.0-0.8); Eosinophils # 0.1 10*3/uL (0.0-0.87); Eosinophils % 1.9 % (0.00-10.9); Hematocrit 41.2 VOL% (35.7-47.0); Immature Granulocytes % 0.3 %; Immature Granulocytes Absolute 0.02 #; Lymphocytes # 3.2 10*3/uL (1.4-4.0); Lymphocytes % 43.1 % (21.3-54.2); Mean Corpuscular Volume 86.2 FL (87-102); Mean Platelet Volume 9.7 FL (9.6-12.0); Platelet Count 310 T/CUMM (130-400); Red Blood Count 4.78 MC/CUMM (3.8-5.5); Red Cell Distribution Width 14.1 % (9.3-17.3); White Blood Count 7.5 T/CUMM (4-12)
[2021-02-15 04:57] LABS: INR 1.1
[2021-02-15] MEDS: NITROGLYCERIN SL 0.4 MG TABLET SL PRN ×2 (05:00→05:05)
[2021-02-15 05:17] LABS: Hypochromasia Slight; Microcytosis Slight; Platelet Estimate Adequate
[2021-02-15] MEDS ORDERED: ONDANSETRON 4 MG/2 ML VIAL ONE (05:17)
[2021-02-15] MEDS ORDERED: ONDANSETRON 4 MG/2 ML VIAL IV ONE (05:18)
[2021-02-15] MEDS ORDERED: MORPHINE 4 MG/1 ML VIAL ONE (05:18)
[2021-02-15 05:21] LABS: Bilirubin,Total 0.4 MG/DL (0.2-1.0); Calcium 8.9 MG/DL (8.5-10.1); Osmolality,Calculated 277.4 MOS/KG (273-304); Potassium 3.3 MMOL/L (3.5-5.1); Total Protein 7.5 G/DL (5.0-7.5)
[2021-02-15] MEDS ORDERED: fentaNYL 100 MCG/2 ML VIAL IV STA (05:24)
[2021-02-15] MEDS ORDERED: fentaNYL 100 MCG/2 ML VIAL ONE (05:25)
[2021-02-15] MEDS ORDERED: POTASSIUM CHLORIDE 20 MEQ TABLET PO STA (05:30)
[2021-02-15] MEDS ORDERED: DEXTROSE 50% 25 GM/50 ML VIAL IV PRN (05:45)
[2021-02-15] MEDS ORDERED: hydrALAZINE 20 MG/1 ML VIAL IV PRN (05:45)
[2021-02-15] MEDS ORDERED: diphenhydrAMINE CAP 25 MG CAPSULE PO PRN (05:45)
[2021-02-15] MEDS ORDERED: NICOTINE 21 MG/24 HR PATCH TRANSDERM PRN (05:45)
[2021-02-15] MEDS ORDERED: guaiFENesin/DM ER 600-30 MG TABLET PO PRN (05:45)
[2021-02-15] MEDS ORDERED: GLUCAGON 1 MG VIAL IM PRN (05:45)
[2021-02-15] MEDS ORDERED: ONDANSETRON 4 MG/2 ML VIAL IV PRN (05:45)
[2021-02-15 06:04] LABS: Risk Ratio 4.23
[2021-02-15] MEDS ORDERED: ALBUTEROL 2.5 MG/3 ML NEB RESP TX PRN (06:53)
[2021-02-15] MEDS ORDERED: FUROSEMIDE 40 MG TABLET PO PRN (06:53)
[2021-02-15] MEDS ORDERED: PANTOPRAZOLE 40 MG VIAL IV ONE (07:00)
[2021-02-15] MEDS: POTASSIUM CHLORIDE 20 MEQ PACK PO SCH ×2 (08:32→20:41)
[2021-02-15] MEDS: GABAPENTIN 100 MG CAPSULE PO SCH ×4 (08:33→20:43)
[2021-02-15] MEDS: ASPIRIN 325 MG TABLET PO SCH (08:37)
[2021-02-15] MEDS ORDERED: MAGNESIUM OXIDE 400 MG TABLET PO SCH (09:00)
[2021-02-15] MEDS: ALUMINUM/MAGNES/SIMETH MAX STR 30 ML UDCUP PO PRN ×2 (09:43→20:54)
[2021-02-15] MEDS: ACETAMINOPHEN 325 MG TABLET PO PRN ×2 (09:44→15:07)
[2021-02-15] MEDS ORDERED: PANTOPRAZOLE 40 MG TABLET PO SCH (10:00)
[2021-02-15] MEDS ORDERED: ALUMINUM/MAGNES/SIMETH MAX STR 30 ML UDCUP PO PRN (10:53)
[2021-02-15] MEDS: PANTOPRAZOLE 40 MG TABLET PO SCH (20:42)
[2021-02-15] MEDS ORDERED: NF- (Fluticasone Furoate-Vilanterol [Breo Ellipta] 200-25 mcg/dose Bl INH SCH (21:00)
[2021-02-15] MEDS ORDERED: SIMVASTATIN 20 MG TABLET PO SCH (21:00)
[2021-02-15] MEDS ORDERED: FERROUS SULFATE 325 MG TABLET PO SCH (21:00)
[2021-02-15] MEDS ORDERED: amLODIPine 5 MG TABLET PO SCH (21:00)
[2021-02-16] MEDS: ACETAMINOPHEN 325 MG TABLET PO PRN (00:44)
[2021-02-16 07:41] VITALS: BP 119/80
[2021-02-16] MEDS: ASPIRIN 325 MG TABLET PO SCH (08:45)
[2021-02-16] MEDS: GABAPENTIN 100 MG CAPSULE PO SCH (08:45)
[2021-02-16] MEDS: POTASSIUM CHLORIDE 20 MEQ PACK PO SCH (08:46)
[2021-02-16] MEDS: PANTOPRAZOLE 40 MG TABLET PO SCH (08:46)
== END 2021-02-16 12:57 | disposition home or self-care (01) ==
LOC: EDUNIT# → EDBD → N.ED 04:19 → N.EDINP 04:19 → N.TELEN 06:13
PROVIDERS: ADMIT Internal Medicine; ATTEND Internal Medicine

== ENCOUNTER 2021-05-20 22:24 | Inpatient (IN) ==
[2021-05-20 22:44] LABS: Basophils # 0.1 10*3/uL (0.0-0.2); Basophils % 0.6 % (0.0-0.8); Hematocrit 42.9 VOL% (35.7-47.0); Hemoglobin 14.4 GM/DL (12.0-16.0); Immature Granulocytes % 0.5 %; Immature Granulocytes Absolute 0.06 #; Lymphocytes # 3.4 10*3/uL (1.4-4.0); Lymphocytes % 28.7 % (21.3-54.2); Mean Corpuscular HGB Conc 33.6 GM/DL (32-36); Mean Corpuscular Volume 86.1 FL (87-102); Mean Platelet Volume 10.2 FL (9.6-12.0); Monocytes % 5.8 % (1.7-12.7); Neutrophils % 64.4 % (38.7-73.9); Platelet Count 336 T/CUMM (130-400); Red Blood Count 4.98 MC/CUMM (3.8-5.5); Red Cell Distribution Width 14.8 % (9.3-17.3); White Blood Count 11.8 T/CUMM (4-12)
[2021-05-20] MEDS ORDERED: FUROSEMIDE 100 MG/10 ML VIAL IV STA (23:21)
[2021-05-20] MEDS ORDERED: AZITHROMYCIN INJ 500 MG in SODIUM CHLORIDE 0.9% 250 ML IV STA (23:21)
[2021-05-20] MEDS ORDERED: methylPREDNISolone SOD SUC 125 MG/2 ML VIAL IV STA (23:21)
[2021-05-20] MEDS ORDERED: ONDANSETRON 4 MG/2 ML VIAL IV STA (23:21)
[2021-05-20] MEDS ORDERED: ALBUTEROL 2.5 MG/3 ML NEB RESP TX ONE (23:24)
[2021-05-20] MEDS ORDERED: PIPERACILLIN/TAZOBACTAM 3,375 MG in SODIUM CHLORIDE 0.9% 100 ML IV STA (23:24)
[2021-05-20] MEDS ORDERED: FLUCONAZOLE 100 MG TABLET PO STA (23:25)
[2021-05-20] MEDS ORDERED: ALBUTEROL NEB SOLN 5 MG/ML 20 ML/BOTTLE CONT NEB SCH (23:30)
[2021-05-20 23:36] LABS: INR 1.1; PT Patient Result 12.2 SECS (10.5-12.0)
[2021-05-21 00:31] LABS: Alanine Aminotransferase 23 U/L (13-56); Albumin 3.2 G/DL (3.4-5.0); Alkaline Phosphatase 129 U/L (45-117); Aspartate Amino Transferase 14 U/L (0-37); Bilirubin,Total < 0.39 MG/DL (0.2-1.0); Blood Urea Nitrogen 14 MG/DL (7-18); Calcium 8.7 MG/DL (8.5-10.1); Carbon Dioxide 23 MMOL/L (21-32); Estimated Glom Filtration Rate 118 ML/MIN; Glucose 154 MG/DL (74-106); Osmolality,Calculated 282.4 MOS/KG (273-304); Potassium 3.3 MMOL/L (3.5-5.1); Sodium 140 MMOL/L (136-145); Total Protein 7.5 G/DL (6.4-8.2)
[2021-05-21 01:06] LABS: ABG Base Excess 0.6 MMOL/L (-2.5-2.5); ABG HCO3 24.9 MMOL/L (20-26); ABG Oxygen Saturation 98.7 % (95-100); ABG PCO2 40.6 MM HG (35-48); ABG PH 7.403 (7.35-7.45); ABG TCO2 21.7 MMOL/L (23-27)
[2021-05-21] MEDS ORDERED: DEXTROSE 50% 25 GM/50 ML VIAL IV PRN (01:29)
[2021-05-21] MEDS ORDERED: SIMETHICONE CHEW 125 MG TABLET PO PRN (01:29)
[2021-05-21] MEDS ORDERED: GLUCAGON 1 MG VIAL IM PRN (01:29)
[2021-05-21] MEDS: ONDANSETRON 4 MG/2 ML VIAL IV PRN ×2 (03:29→13:12)
[2021-05-21] MEDS: ALBUTEROL/IPRATROPIUM 3 ML NEB RESP TX SCH ×6 (03:35→23:25)
[2021-05-21 04:56] LABS: Basophils # 0.1 10*3/uL (0.0-0.2); Basophils % 0.4 % (0.0-0.8); Immature Granulocytes % 0.6 %; Immature Granulocytes Absolute 0.07 #; Lymphocytes # 1.1 10*3/uL (1.4-4.0); Lymphocytes % 8.8 % (21.3-54.2); Mean Corpuscular HGB Conc 33.3 GM/DL (32-36); Mean Corpuscular Volume 86.2 FL (87-102); Mean Platelet Volume 10.4 FL (9.6-12.0); Monocytes % 1.2 % (1.7-12.7); Platelet Count 332 T/CUMM (130-400); Red Blood Count 4.87 MC/CUMM (3.8-5.5); Red Cell Distribution Width 14.7 % (9.3-17.3); White Blood Count 11.9 T/CUMM (4-12)
[2021-05-21 05:18] LABS: Bilirubin,Urine Negative (Negative); Blood, Urine Negative (Negative); Glucose,Urine (UA) Negative (Negative); Hyaline Casts,Urine 3 /LPF (0-3); Ketones,Urine Negative (Negative); Mucus,Urine Occasional /LPF (Occasional); Nitrite,Urine Negative (Negative); Protein,Urine Negative; RBC,Urine 1 /HPF (0-4); Squamous Epithelial Cell,Urine Occasional /HPF (0-10); Urine Appearance CLEAR (Clear); Urine Color Straw (Yellow); Urine Specific Gravity 1.008 (1.001-1.035); Urine Urobilinogen < 2.0 EU/DL (0.2-1.0)
[2021-05-21 05:25] LABS: Barbiturates Screen,Urine Negative (Negative); Benzodiazepines Screen,Urine Negative (Negative); Cannabinoid Screen,Urine Negative (Negative); Opiate Screen,Urine Negative (Negative); Phencyclidine Screen,Urine Negative (Negative)
[2021-05-21 05:25] LABS: Albumin 3.2 G/DL (3.4-5.0); Bilirubin,Total 0.6 MG/DL (0.2-1.0); Calcium 8.7 MG/DL (8.5-10.1); Osmolality,Calculated 284.3 MOS/KG (273-304); Potassium 3.4 MMOL/L (3.5-5.1); Total Protein 7.7 G/DL (6.4-8.2)
[2021-05-21] MEDS: methylPREDNISolone SOD SUC 40 MG/1 ML VIAL IV SCH ×3 (06:02→19:15)
[2021-05-21] MEDS ORDERED: POTASSIUM CHLORIDE 20 MEQ TABLET PO PRN (08:52)
[2021-05-21] MEDS ORDERED: POTASSIUM CHLORIDE 20 MEQ TABLET PO ONE (08:52)
[2021-05-21] MEDS: PANTOPRAZOLE 40 MG TABLET PO SCH ×2 (09:16→20:44)
[2021-05-21] MEDS: METOCLOPRAMIDE 10 MG TABLET PO SCH ×4 (09:16→20:44)
[2021-05-21] MEDS: GABAPENTIN 100 MG CAPSULE PO SCH ×4 (09:16→20:44)
[2021-05-21] MEDS: MAGNESIUM OXIDE 400 MG TABLET PO SCH (09:16)
[2021-05-21] MEDS: ENOXAPARIN 40 MG/0.4 ML SYRINGE SUBCUT SCH (09:17)
[2021-05-21] MEDS: DOCUSATE SODIUM 100 MG CAPSULE PO PRN (09:17)
[2021-05-21] MEDS: LEVOFLOXACIN INJ 500 MG/100 ML PREMIX IV SCH (13:11)
[2021-05-21] MEDS: MONTELUKAST 10 MG TABLET PO SCH (13:11)
[2021-05-21] MEDS: NYSTATIN 500,000 UNIT/5 ML UDCUP SWISH/SWAL SCH ×2 (17:35→20:45)
[2021-05-21] MEDS: NON-FORMULARY MEDICATION (Fluticasone Furoate-Vilanterol [Breo Ellipta] 200-25 mcg/dose Bl INH SCH (20:37)
[2021-05-21] MEDS: amLODIPine 5 MG TABLET PO SCH (20:44)
[2021-05-21] MEDS: FERROUS SULFATE 325 MG TABLET PO SCH (20:44)
[2021-05-21] MEDS: ASPIRIN 325 MG TABLET PO SCH (20:44)
[2021-05-21] MEDS: SIMVASTATIN 20 MG TABLET PO SCH (20:45)
[2021-05-22] MEDS: methylPREDNISolone SOD SUC 40 MG/1 ML VIAL IV SCH ×5 (00:52→23:48)
[2021-05-22] MEDS: ALBUTEROL/IPRATROPIUM 3 ML NEB RESP TX SCH ×6 (03:30→23:30)
[2021-05-22] MEDS: traMADol 50 MG TABLET PO PRN ×2 (05:14→21:22)
[2021-05-22 05:21] LABS: Basophils % 0.2 % (0.0-0.8); Hematocrit 40.7 VOL% (35.7-47.0); Hemoglobin 13.5 GM/DL (12.0-16.0); Immature Granulocytes % 0.7 %; Lymphocytes # 1.4 10*3/uL (1.4-4.0); Lymphocytes % 9.6 % (21.3-54.2); Mean Corpuscular HGB Conc 33.2 GM/DL (32-36); Mean Corpuscular Volume 87.5 FL (87-102); Mean Platelet Volume 10.8 FL (9.6-12.0); Neutrophils % 87.5 % (38.7-73.9); Platelet Count 319 T/CUMM (130-400); Red Blood Count 4.65 MC/CUMM (3.8-5.5); White Blood Count 14.8 T/CUMM (4-12)
[2021-05-22 05:49] LABS: Calcium 9.2 MG/DL (8.5-10.1); Osmolality,Calculated 284.7 MOS/KG (273-304); Potassium 4.3 MMOL/L (3.5-5.1)
[2021-05-22] MEDS: METOCLOPRAMIDE 10 MG TABLET PO SCH ×4 (08:43→21:18)
[2021-05-22] MEDS: MONTELUKAST 10 MG TABLET PO SCH (08:43)
[2021-05-22] MEDS: ENOXAPARIN 40 MG/0.4 ML SYRINGE SUBCUT SCH (08:43)
[2021-05-22] MEDS: GABAPENTIN 100 MG CAPSULE PO SCH ×4 (08:43→21:18)
[2021-05-22] MEDS: PANTOPRAZOLE 40 MG TABLET PO SCH ×2 (08:44→21:18)
[2021-05-22] MEDS: DOCUSATE SODIUM 100 MG CAPSULE PO PRN (08:44)
[2021-05-22] MEDS: NYSTATIN 500,000 UNIT/5 ML UDCUP SWISH/SWAL SCH ×4 (08:44→21:18)
[2021-05-22] MEDS: LEVOFLOXACIN INJ 500 MG/100 ML PREMIX IV SCH (10:40)
[2021-05-22] MEDS ORDERED: LACTULOSE 20 GM/30 ML UDCUP PO PRN (14:36)
[2021-05-22] MEDS ORDERED: LACTULOSE 20 GM/30 ML UDCUP PO ONE (14:36)
[2021-05-22] MEDS: NON-FORMULARY MEDICATION (Fluticasone Furoate-Vilanterol [Breo Ellipta] 200-25 mcg/dose Bl INH SCH (21:17)
[2021-05-22] MEDS: FERROUS SULFATE 325 MG TABLET PO SCH (21:18)
[2021-05-22] MEDS: amLODIPine 5 MG TABLET PO SCH (21:18)
[2021-05-22] MEDS: ASPIRIN 325 MG TABLET PO SCH (21:18)
[2021-05-22] MEDS: SIMVASTATIN 20 MG TABLET PO SCH (21:20)
[2021-05-23] MEDS: ALBUTEROL/IPRATROPIUM 3 ML NEB RESP TX SCH ×6 (02:39→23:38)
[2021-05-23] MEDS: methylPREDNISolone SOD SUC 40 MG/1 ML VIAL IV SCH ×3 (05:54→17:08)
[2021-05-23 08:00] LABS: Basophils % 0.1 % (0.0-0.8); Hematocrit 40.9 VOL% (35.7-47.0); Hemoglobin 13.6 GM/DL (12.0-16.0); Immature Granulocytes % 1.4 %; Immature Granulocytes Absolute 0.24 #; Lymphocytes # 1.3 10*3/uL (1.4-4.0); Lymphocytes % 7.6 % (21.3-54.2); Mean Corpuscular HGB Conc 33.3 GM/DL (32-36); Mean Corpuscular Volume 87.4 FL (87-102); Mean Platelet Volume 10.3 FL (9.6-12.0); Monocytes % 1.9 % (1.7-12.7); Platelet Count 334 T/CUMM (130-400); Red Blood Count 4.68 MC/CUMM (3.8-5.5); Red Cell Distribution Width 15.3 % (9.3-17.3); White Blood Count 17.1 T/CUMM (4-12)
[2021-05-23 08:10] LABS: Calcium 8.8 MG/DL (8.5-10.1); Osmolality,Calculated 278.7 MOS/KG (273-304); Potassium 4.1 MMOL/L (3.5-5.1)
[2021-05-23] MEDS: ENOXAPARIN 40 MG/0.4 ML SYRINGE SUBCUT SCH (08:39)
[2021-05-23] MEDS: NYSTATIN 500,000 UNIT/5 ML UDCUP SWISH/SWAL SCH ×4 (08:39→21:11)
[2021-05-23] MEDS: MONTELUKAST 10 MG TABLET PO SCH (08:40)
[2021-05-23] MEDS: MAGNESIUM OXIDE 400 MG TABLET PO SCH (08:40)
[2021-05-23] MEDS: METOCLOPRAMIDE 10 MG TABLET PO SCH ×4 (08:40→21:09)
[2021-05-23] MEDS: GABAPENTIN 100 MG CAPSULE PO SCH ×4 (08:40→21:09)
[2021-05-23] MEDS: PANTOPRAZOLE 40 MG TABLET PO SCH ×2 (08:40→21:10)
[2021-05-23] MEDS: POLYETHYLENE GLYCOL POWDER 17 GM PACK PO SCH (08:41)
[2021-05-23] MEDS: CLOTRIMAZOLE 10 MG TROCHE PO SCH ×4 (11:09→21:12)
[2021-05-23] MEDS: LEVOFLOXACIN INJ 500 MG/100 ML PREMIX IV SCH (11:09)
[2021-05-23] MEDS: FUROSEMIDE 40 MG TABLET PO PRN (16:56)
[2021-05-23] MEDS: FERROUS SULFATE 325 MG TABLET PO SCH (21:10)
[2021-05-23] MEDS: SIMVASTATIN 20 MG TABLET PO SCH (21:10)
[2021-05-23] MEDS: amLODIPine 5 MG TABLET PO SCH (21:10)
[2021-05-23] MEDS: ASPIRIN 325 MG TABLET PO SCH (21:33)
[2021-05-23] MEDS: NON-FORMULARY MEDICATION (Fluticasone Furoate-Vilanterol [Breo Ellipta] 200-25 mcg/dose Bl INH SCH (21:34)
[2021-05-24] MEDS: methylPREDNISolone SOD SUC 40 MG/1 ML VIAL IV SCH ×4 (00:42→18:25)
[2021-05-24] MEDS: traMADol 50 MG TABLET PO PRN (00:49)
[2021-05-24] MEDS: ALBUTEROL/IPRATROPIUM 3 ML NEB RESP TX SCH ×6 (02:00→23:53)
[2021-05-24] MEDS ORDERED: KETOROLAC 30 MG/1 ML VIAL IV ONE (03:56)
[2021-05-24 06:01] LABS: Basophils % 0.2 % (0.0-0.8); Hematocrit 41.6 VOL% (35.7-47.0); Hemoglobin 13.7 GM/DL (12.0-16.0); Immature Granulocytes % 1.9 %; Immature Granulocytes Absolute 0.29 #; Lymphocytes # 1.1 10*3/uL (1.4-4.0); Lymphocytes % 7.4 % (21.3-54.2); Mean Corpuscular HGB Conc 32.9 GM/DL (32-36); Mean Corpuscular Volume 87.2 FL (87-102); Mean Platelet Volume 10.5 FL (9.6-12.0); Monocytes % 2.1 % (1.7-12.7); Neutrophils % 88.4 % (38.7-73.9); Platelet Count 332 T/CUMM (130-400); Red Blood Count 4.77 MC/CUMM (3.8-5.5); White Blood Count 15.4 T/CUMM (4-12)
[2021-05-24 06:20] LABS: Calcium 8.5 MG/DL (8.5-10.1); Osmolality,Calculated 282.5 MOS/KG (273-304); Potassium 3.5 MMOL/L (3.5-5.1)
[2021-05-24] MEDS: CLOTRIMAZOLE 10 MG TROCHE PO SCH ×5 (07:09→22:15)
[2021-05-24] MEDS: FUROSEMIDE 40 MG TABLET PO PRN (07:13)
[2021-05-24] MEDS: PANTOPRAZOLE 40 MG TABLET PO SCH ×2 (09:02→20:47)
[2021-05-24] MEDS: MONTELUKAST 10 MG TABLET PO SCH (09:02)
[2021-05-24] MEDS: GABAPENTIN 100 MG CAPSULE PO SCH ×4 (09:02→20:47)
[2021-05-24] MEDS: METOCLOPRAMIDE 10 MG TABLET PO SCH ×4 (09:02→20:47)
[2021-05-24] MEDS: ENOXAPARIN 40 MG/0.4 ML SYRINGE SUBCUT SCH (09:03)
[2021-05-24] MEDS: POLYETHYLENE GLYCOL POWDER 17 GM PACK PO SCH (09:03)
[2021-05-24] MEDS: NYSTATIN 500,000 UNIT/5 ML UDCUP SWISH/SWAL SCH ×4 (09:03→20:46)
[2021-05-24] MEDS: LEVOFLOXACIN INJ 500 MG/100 ML PREMIX IV SCH (10:46)
[2021-05-24] MEDS ORDERED: SODIUM CHLORIDE 0.65% NASAL SPRAY 45 ML BOTTLE BOTH NARES PRN (10:55)
[2021-05-24] MEDS: guaiFENesin 200 MG/10 ML UDCUP PO PRN (20:46)
[2021-05-24] MEDS: SIMVASTATIN 20 MG TABLET PO SCH (20:46)
[2021-05-24] MEDS: ASPIRIN 325 MG TABLET PO SCH (20:46)
[2021-05-24] MEDS: amLODIPine 5 MG TABLET PO SCH (20:47)
[2021-05-24] MEDS: NON-FORMULARY MEDICATION (Fluticasone Furoate-Vilanterol [Breo Ellipta] 200-25 mcg/dose Bl INH SCH (20:47)
[2021-05-24] MEDS: FERROUS SULFATE 325 MG TABLET PO SCH (20:47)
[2021-05-25] MEDS: methylPREDNISolone SOD SUC 40 MG/1 ML VIAL IV SCH ×4 (00:11→17:11)
[2021-05-25] MEDS: traMADol 50 MG TABLET PO PRN ×2 (00:14→20:53)
[2021-05-25] MEDS: guaiFENesin 200 MG/10 ML UDCUP PO PRN ×3 (00:14→20:46)
[2021-05-25] MEDS: ALBUTEROL/IPRATROPIUM 3 ML NEB RESP TX SCH ×5 (03:27→21:23)
[2021-05-25 06:00] LABS: Basophils % 0.1 % (0.0-0.8); Hematocrit 41.5 VOL% (35.7-47.0); Hemoglobin 13.9 GM/DL (12.0-16.0); Immature Granulocytes % 1.8 %; Immature Granulocytes Absolute 0.25 #; Lymphocytes # 1.1 10*3/uL (1.4-4.0); Lymphocytes % 7.8 % (21.3-54.2); Mean Corpuscular HGB Conc 33.5 GM/DL (32-36); Mean Corpuscular Volume 86.5 FL (87-102); Mean Platelet Volume 10.6 FL (9.6-12.0); Monocytes % 2.5 % (1.7-12.7); Neutrophils % 87.8 % (38.7-73.9); Platelet Count 324 T/CUMM (130-400); Red Cell Distribution Width 14.7 % (9.3-17.3); White Blood Count 13.5 T/CUMM (4-12)
[2021-05-25] MEDS: CLOTRIMAZOLE 10 MG TROCHE PO SCH ×5 (06:06→21:11)
[2021-05-25 06:22] LABS: Calcium 8.2 MG/DL (8.5-10.1); Osmolality,Calculated 285.7 MOS/KG (273-304); Potassium 3.7 MMOL/L (3.5-5.1)
[2021-05-25] MEDS: POLYETHYLENE GLYCOL POWDER 17 GM PACK PO SCH (09:32)
[2021-05-25] MEDS: ENOXAPARIN 40 MG/0.4 ML SYRINGE SUBCUT SCH (09:32)
[2021-05-25] MEDS: MONTELUKAST 10 MG TABLET PO SCH (09:33)
[2021-05-25] MEDS: MAGNESIUM OXIDE 400 MG TABLET PO SCH (09:33)
[2021-05-25] MEDS: LEVOFLOXACIN INJ 500 MG/100 ML PREMIX IV SCH (09:33)
[2021-05-25] MEDS: NYSTATIN 500,000 UNIT/5 ML UDCUP SWISH/SWAL SCH ×4 (09:33→20:46)
[2021-05-25] MEDS: METOCLOPRAMIDE 10 MG TABLET PO SCH ×4 (09:33→20:46)
[2021-05-25] MEDS: PANTOPRAZOLE 40 MG TABLET PO SCH ×2 (09:34→20:45)
[2021-05-25] MEDS: GABAPENTIN 100 MG CAPSULE PO SCH ×4 (09:34→20:46)
[2021-05-25] MEDS: FUROSEMIDE 40 MG TABLET PO PRN (09:37)
[2021-05-25] MEDS: amLODIPine 5 MG TABLET PO SCH (20:46)
[2021-05-25] MEDS: SIMVASTATIN 20 MG TABLET PO SCH (20:46)
[2021-05-25] MEDS: ASPIRIN 325 MG TABLET PO SCH (20:47)
[2021-05-25] MEDS: FERROUS SULFATE 325 MG TABLET PO SCH (21:10)
[2021-05-25] MEDS: NON-FORMULARY MEDICATION (Fluticasone Furoate-Vilanterol [Breo Ellipta] 200-25 mcg/dose Bl INH SCH (21:11)
[2021-05-26] MEDS: ALBUTEROL/IPRATROPIUM 3 ML NEB RESP TX SCH ×4 (00:20→10:36)
[2021-05-26] MEDS: methylPREDNISolone SOD SUC 40 MG/1 ML VIAL IV SCH ×3 (00:28→12:36)
[2021-05-26] MEDS ORDERED: KETOROLAC 30 MG/1 ML VIAL IV ONE (01:03)
[2021-05-26] MEDS: CLOTRIMAZOLE 10 MG TROCHE PO SCH ×2 (06:17→09:51)
[2021-05-26 06:55] LABS: Basophils % 0.3 % (0.0-0.8); Hemoglobin 14.4 GM/DL (12.0-16.0); Immature Granulocytes Absolute 0.43 #; Lymphocytes % 6.9 % (21.3-54.2); Mean Corpuscular HGB Conc 34.3 GM/DL (32-36); Mean Corpuscular Volume 85.7 FL (87-102); Monocytes % 1.9 % (1.7-12.7); NRBC # 0.02 10*3/uL; Neutrophils % 87.9 % (38.7-73.9); Platelet Count 336 T/CUMM (130-400); Red Cell Distribution Width 14.6 % (9.3-17.3); White Blood Count 14.2 T/CUMM (4-12)
[2021-05-26 07:11] LABS: Calcium 8.4 MG/DL (8.5-10.1); Osmolality,Calculated 283.8 MOS/KG (273-304); Potassium 3.8 MMOL/L (3.5-5.1)
[2021-05-26] MEDS: ENOXAPARIN 40 MG/0.4 ML SYRINGE SUBCUT SCH (09:46)
[2021-05-26] MEDS: FUROSEMIDE 40 MG TABLET PO PRN (09:49)
[2021-05-26] MEDS: METOCLOPRAMIDE 10 MG TABLET PO SCH (09:50)
[2021-05-26] MEDS: PANTOPRAZOLE 40 MG TABLET PO SCH (09:50)
[2021-05-26] MEDS: MONTELUKAST 10 MG TABLET PO SCH (09:50)
[2021-05-26] MEDS: traMADol 50 MG TABLET PO PRN (09:50)
[2021-05-26] MEDS: POLYETHYLENE GLYCOL POWDER 17 GM PACK PO SCH (09:50)
[2021-05-26] MEDS: NYSTATIN 500,000 UNIT/5 ML UDCUP SWISH/SWAL SCH (09:50)
[2021-05-26] MEDS: GABAPENTIN 100 MG CAPSULE PO SCH (09:50)
[2021-05-26] MEDS: LEVOFLOXACIN INJ 500 MG/100 ML PREMIX IV SCH ×2 (09:52→12:36)
[2021-05-26 11:59] VITALS: BP 131/71
== END 2021-05-26 12:05 | disposition home or self-care (01) | DRG 190 ==
LOC: N.ED 22:24 → N.EDINP 05-21 01:29 → N.4E 05-21 02:24
PROVIDERS: ADMIT Internal Medicine; ATTEND Internal Medicine

== ENCOUNTER 2021-07-02 21:25 | Observation (INO) ==
[2021-07-02] MEDS ORDERED: methylPREDNISolone SOD SUC 125 MG/2 ML VIAL IV STA (23:20)
[2021-07-02] MEDS ORDERED: ONDANSETRON 4 MG/2 ML VIAL IV STA (23:20)
[2021-07-02] MEDS ORDERED: FUROSEMIDE 40 MG/4 ML VIAL IV STA (23:20)
[2021-07-02] MEDS ORDERED: ALBUTEROL NEB SOLN 5 MG/ML 20 ML/BOTTLE CONT NEB SCH (23:30)
[2021-07-03] LABS: Basophils # 0.1 10*3/uL (0.0-0.2); Basophils % 0.7 % (0.0-0.8); Eosinophils # 0.1 10*3/uL (0.0-0.87); Eosinophils % 1.5 % (0.00-10.9); Hematocrit 40.8 VOL% (35.7-47.0); Hemoglobin 13.6 GM/DL (12.0-16.0); Immature Granulocytes % 0.3 %; Immature Granulocytes Absolute 0.02 #; Lymphocytes # 2.7 10*3/uL (1.4-4.0); Lymphocytes % 35.8 % (21.3-54.2); Mean Corpuscular HGB Conc 33.3 GM/DL (32-36); Mean Platelet Volume 10.4 FL (9.6-12.0); Monocytes % 8.2 % (1.7-12.7); Neutrophils % 53.5 % (38.7-73.9); Platelet Count 331 T/CUMM (130-400); Red Blood Count 4.69 MC/CUMM (3.8-5.5); Red Cell Distribution Width 14.7 % (9.3-17.3); White Blood Count 7.4 T/CUMM (4-12)
[2021-07-03 00:14] LABS: PT Patient Result 11.5 SECS (10.5-12.0)
[2021-07-03 00:39] LABS: Alanine Aminotransferase 21 U/L (13-56); Alkaline Phosphatase 130 U/L (45-117); Aspartate Amino Transferase 11 U/L (0-37); Bilirubin,Total < 0.39 MG/DL (0.20-1.00); Blood Urea Nitrogen 10 MG/DL (7-18); Calcium 8.9 MG/DL (8.5-10.1); Carbon Dioxide 25 MMOL/L (21-32); Estimated Glom Filtration Rate 138 ML/MIN; Glucose 99 MG/DL (74-106); Osmolality,Calculated 281.1 MOS/KG (273-304); Potassium 3.6 MMOL/L (3.5-5.1); Sodium 142 MMOL/L (136-145); Total Protein 7.3 G/DL (6.4-8.2)
[2021-07-03] MEDS ORDERED: ENOXAPARIN 100 MG/ML SYRINGE SUBCUT STA (02:28)
[2021-07-03] MEDS ORDERED: cloNIDine 0.1 MG TABLET PO STA (02:29)
[2021-07-03] MEDS ORDERED: DEXTROSE 50% 25 GM/50 ML VIAL IV PRN (02:59)
[2021-07-03] MEDS ORDERED: NICOTINE 21 MG/24 HR PATCH TRANSDERM PRN (02:59)
[2021-07-03] MEDS ORDERED: CALCIUM CARBONATE CHEW 500 MG TABLET PO PRN (02:59)
[2021-07-03] MEDS ORDERED: GLUCAGON 1 MG VIAL IM PRN (02:59)
[2021-07-03] MEDS ORDERED: guaiFENesin/DM ER 600-30 MG TABLET PO PRN (02:59)
[2021-07-03] MEDS ORDERED: diphenhydrAMINE CAP 25 MG CAPSULE PO PRN (02:59)
[2021-07-03] MEDS ORDERED: hydrALAZINE 20 MG/1 ML VIAL IV PRN (02:59)
[2021-07-03] MEDS ORDERED: ONDANSETRON 4 MG/2 ML VIAL IV PRN (02:59)
[2021-07-03] MEDS: ALBUTEROL/IPRATROPIUM 3 ML NEB RESP TX SCH ×3 (07:05→20:01)
[2021-07-03] MEDS: ACETAMINOPHEN 325 MG TABLET PO PRN ×2 (07:54→20:39)
[2021-07-03] MEDS: methylPREDNISolone SOD SUC 40 MG/1 ML VIAL IV SCH ×2 (08:33→20:04)
[2021-07-03 14:07] LABS: Bilirubin,Urine Negative (Negative); Blood, Urine Negative (Negative); Glucose,Urine (UA) 50 mg/dL (Negative); Ketones,Urine Negative (Negative); Mucus,Urine Few /LPF (Occasional); Nitrite,Urine Negative (Negative); Protein,Urine Negative; RBC,Urine 3 /HPF (0-4); Squamous Epithelial Cell,Urine Moderate /HPF (0-10); Urine Appearance CLEAR (Clear); Urine Color Yellow (Yellow); Urine Specific Gravity > 1.060 (1.001-1.035); Urine Urobilinogen < 2.0 EU/DL (0.2-1.0)
[2021-07-03] MEDS: FUROSEMIDE 40 MG/4 ML VIAL IV SCH (16:38)
[2021-07-04] MEDS: ALBUTEROL/IPRATROPIUM 3 ML NEB RESP TX SCH ×4 (00:05→19:43)
[2021-07-04 05:46] LABS: Basophils % 0.2 % (0.0-0.8); Hematocrit 39.8 VOL% (35.7-47.0); Hemoglobin 13.4 GM/DL (12.0-16.0); Immature Granulocytes % 0.7 %; Immature Granulocytes Absolute 0.14 #; Lymphocytes # 1.7 10*3/uL (1.4-4.0); Lymphocytes % 8.5 % (21.3-54.2); Mean Corpuscular HGB Conc 33.7 GM/DL (32-36); Mean Corpuscular Volume 86.3 FL (87-102); Mean Platelet Volume 10.8 FL (9.6-12.0); Monocytes % 2.7 % (1.7-12.7); Neutrophils % 87.9 % (38.7-73.9); Platelet Count 322 T/CUMM (130-400); Red Blood Count 4.61 MC/CUMM (3.8-5.5); Red Cell Distribution Width 14.8 % (9.3-17.3); White Blood Count 19.8 T/CUMM (4-12)
[2021-07-04 06:10] LABS: Calcium 9.3 MG/DL (8.5-10.1); Osmolality,Calculated 281.5 MOS/KG (273-304); Potassium 3.7 MMOL/L (3.5-5.1)
[2021-07-04] MEDS: FUROSEMIDE 40 MG/4 ML VIAL IV SCH (09:27)
[2021-07-04] MEDS: methylPREDNISolone SOD SUC 40 MG/1 ML VIAL IV SCH ×2 (09:27→21:25)
[2021-07-04] MEDS: ACETAMINOPHEN 325 MG TABLET PO PRN (09:28)
[2021-07-04] MEDS ORDERED: ONDANSETRON 8 MG PO PRN (11:38)
[2021-07-04] MEDS ORDERED: ALBUTEROL 2.5 MG/3 ML NEB RESP TX PRN (11:48)
[2021-07-04] MEDS: GABAPENTIN 100 MG CAPSULE PO SCH ×3 (12:47→21:24)
[2021-07-04] MEDS: PANTOPRAZOLE 40 MG TABLET PO SCH (17:30)
[2021-07-04] MEDS ORDERED: ENOXAPARIN 40 MG/0.4 ML SYRINGE SUBCUT SCH (21:00)
[2021-07-04] MEDS ORDERED: amLODIPine 5 MG TABLET PO SCH (21:00)
[2021-07-04] MEDS ORDERED: ASPIRIN 325 MG TABLET PO SCH (21:00)
[2021-07-04] MEDS ORDERED: SIMVASTATIN 20 MG TABLET PO SCH (21:00)
[2021-07-04] MEDS ORDERED: MONTELUKAST 10 MG TABLET PO SCH (21:00)
[2021-07-05] MEDS: ALBUTEROL/IPRATROPIUM 3 ML NEB RESP TX SCH ×2 (00:05→07:11)
[2021-07-05] MEDS: PANTOPRAZOLE 40 MG TABLET PO SCH (06:11)
[2021-07-05 06:19] LABS: Basophils % 0.2 % (0.0-0.8); Hematocrit 39.2 VOL% (35.7-47.0); Hemoglobin 13.3 GM/DL (12.0-16.0); Immature Granulocytes % 0.9 %; Immature Granulocytes Absolute 0.17 #; Lymphocytes # 1.2 10*3/uL (1.4-4.0); Lymphocytes % 6.6 % (21.3-54.2); Mean Corpuscular HGB Conc 33.9 GM/DL (32-36); Mean Corpuscular Volume 86.7 FL (87-102); Mean Platelet Volume 11.3 FL (9.6-12.0); Monocytes % 2.3 % (1.7-12.7); Platelet Count 321 T/CUMM (130-400); Red Blood Count 4.52 MC/CUMM (3.8-5.5); Red Cell Distribution Width 14.8 % (9.3-17.3); White Blood Count 18.1 T/CUMM (4-12)
[2021-07-05 06:33] LABS: Calcium 8.9 MG/DL (8.5-10.1); Osmolality,Calculated 286.5 MOS/KG (273-304); Potassium 4.1 MMOL/L (3.5-5.1)
[2021-07-05] MEDS: GABAPENTIN 100 MG CAPSULE PO SCH (08:42)
[2021-07-05] MEDS: methylPREDNISolone SOD SUC 40 MG/1 ML VIAL IV SCH (08:43)
[2021-07-05] MEDS: FUROSEMIDE 40 MG/4 ML VIAL IV SCH (08:43)
[2021-07-05] MEDS ORDERED: LEVOFLOXACIN INJ 750 MG/150 ML PREMIX IV SCH (11:00)
[2021-07-05 11:38] VITALS: BP 136/81
[2021-07-06] MEDS ORDERED: MAGNESIUM OXIDE 400 MG TABLET PO SCH (09:00)
[2021-07-06] MEDS ORDERED: FERROUS SULFATE 325 MG TABLET PO SCH (09:00)
== END 2021-07-05 13:00 | disposition home or self-care (01) ==
LOC: N.EDINP 21:25 → N.ED 21:25 → SUATTDRO 07-03 02:59 → N.5E 07-03 05:40
PROVIDERS: ADMIT Internal Medicine; ATTEND Internal Medicine

== ENCOUNTER 2021-11-30 14:20 | Inpatient (IN) ==
[2021-11-30] MEDS ORDERED: ALBUTEROL/IPRATROPIUM 3 ML NEB RESP TX STA (15:28)
[2021-11-30 15:50] LABS: Basophils % 0.4 % (0.0-0.8); Eosinophils % 0.1 % (0.00-10.9); Hemoglobin 13.6 GM/DL (12.0-16.0); Immature Granulocytes % 0.5 %; Immature Granulocytes Absolute 0.04 #; Lymphocytes # 0.4 10*3/uL (1.4-4.0); Lymphocytes % 4.9 % (21.3-54.2); Mean Corpuscular HGB Conc 33.2 GM/DL (32-36); Mean Corpuscular Volume 84.5 FL (87-102); Mean Platelet Volume 10.3 FL (9.6-12.0); Monocytes % 19.2 % (1.7-12.7); Neutrophils % 74.9 % (38.7-73.9); Platelet Count 317 T/CUMM (130-400); Red Blood Count 4.85 MC/CUMM (3.8-5.5); Red Cell Distribution Width 14.5 % (9.3-17.3); White Blood Count 8.1 T/CUMM (4-12)
[2021-11-30 16:02] LABS: Albumin 3.3 G/DL (3.4-5.0); Bilirubin,Total 0.4 MG/DL (0.20-1.00); Osmolality,Calculated 276.5 MOS/KG (273-304); Potassium 3.6 MMOL/L (3.5-5.1); Total Protein 7.3 G/DL (6.4-8.2)
[2021-11-30] MEDS ORDERED: LEVOFLOXACIN INJ 750 MG/150 ML PREMIX IV STA (16:36)
[2021-11-30] MEDS ORDERED: ONDANSETRON 4 MG/2 ML VIAL IV STA (16:40)
[2021-11-30] MEDS ORDERED: ONDANSETRON 4 MG/2 ML VIAL ONE (16:40)
[2021-11-30] MEDS ORDERED: DEXTROSE 50% 25 GM/50 ML SYRINGE IV PRN (17:04)
[2021-11-30] MEDS ORDERED: DOCUSATE SODIUM 100 MG CAPSULE PO PRN (17:04)
[2021-11-30] MEDS ORDERED: ACETAMINOPHEN 325 MG TABLET PO ONE (17:04)
[2021-11-30] MEDS ORDERED: ONDANSETRON 4 MG/2 ML VIAL IV PRN (17:04)
[2021-11-30] MEDS ORDERED: hydrALAZINE 20 MG/1 ML VIAL IV PRN (17:04)
[2021-11-30] MEDS ORDERED: KETOROLAC 60 MG/2 ML VIAL IM STA (17:04)
[2021-11-30] MEDS ORDERED: diphenhydrAMINE CAP 25 MG CAPSULE PO PRN (17:04)
[2021-11-30] MEDS ORDERED: GLUCAGON 1 MG VIAL IM PRN (17:04)
[2021-11-30] MEDS ORDERED: ALBUTEROL 2.5 MG/3 ML NEB RESP TX PRN (17:19)
[2021-11-30 17:22] LABS: Eosinophils 1 % (0-10); Hypochromia 1+; Lymphocytes 5 % (20-55); Segmented Neutrophils 83 % (50-85); Total Cells Counted 100
[2021-11-30 17:23] LABS: Platelet Estimate Normal
[2021-11-30] MEDS: ALBUTEROL/IPRATROPIUM 3 ML NEB RESP TX SCH (20:22)
[2021-11-30] MEDS: ENOXAPARIN 40 MG/0.4 ML SYRINGE SUBCUT SCH (23:15)
[2021-11-30] MEDS: INSULIN LISPRO 100 UNIT/ML SUBCUT SCH (23:22)
[2021-11-30] MEDS: ACETAMINOPHEN 325 MG TABLET PO PRN (23:30)
[2021-12-01] MEDS: ALBUTEROL/IPRATROPIUM 3 ML NEB RESP TX SCH ×2 (00:02→07:43)
[2021-12-01] MEDS ORDERED: KETOROLAC 30 MG/1 ML VIAL IV ONE (01:37)
[2021-12-01 05:52] LABS: Basophils % 0.4 % (0.0-0.8); Hematocrit 38.9 VOL% (35.7-47.0); Immature Granulocytes % 0.2 %; Immature Granulocytes Absolute 0.01 #; Lymphocytes # 0.7 10*3/uL (1.4-4.0); Lymphocytes % 13.7 % (21.3-54.2); Mean Corpuscular HGB Conc 33.4 GM/DL (32-36); Mean Corpuscular Volume 84.4 FL (87-102); Mean Platelet Volume 9.8 FL (9.6-12.0); Monocytes % 22.9 % (1.7-12.7); Neutrophils % 62.8 % (38.7-73.9); Platelet Count 305 T/CUMM (130-400); Red Blood Count 4.61 MC/CUMM (3.8-5.5); Red Cell Distribution Width 14.6 % (9.3-17.3)
[2021-12-01 06:11] LABS: Lymphocytes 17 % (20-55); Platelet Estimate Adequate; Segmented Neutrophils 60 % (50-85); Total Cells Counted 100
[2021-12-01 06:15] LABS: Albumin 2.9 G/DL (3.4-5.0); Bilirubin,Total 0.5 MG/DL (0.20-1.00); Calcium 8.8 MG/DL (8.5-10.1); Osmolality,Calculated 281.3 MOS/KG (273-304); Potassium 3.6 MMOL/L (3.5-5.1); Risk Ratio 2.77; Thyroid Stimulating Hormone 0.228 uIU/ml (0.358-3.74); Total Protein 7.1 G/DL (6.4-8.2); VLDL Cholesterol 6.6 MG/DL
[2021-12-01] MEDS: INSULIN LISPRO 100 UNIT/ML SUBCUT SCH ×4 (08:40→22:54)
[2021-12-01] MEDS: NICOTINE 21 MG/24 HR PATCH TRANSDERM SCH (09:35)
[2021-12-01] MEDS: MELOXICAM 7.5 MG TABLET PO SCH (09:40)
[2021-12-01] MEDS: MONTELUKAST 10 MG TABLET PO SCH (09:40)
[2021-12-01] MEDS: PANTOPRAZOLE 40 MG TABLET PO SCH (09:40)
[2021-12-01] MEDS: ACETAMINOPHEN 325 MG TABLET PO PRN ×2 (09:43→23:05)
[2021-12-01] MEDS ORDERED: methylPREDNISolone SOD SUC 125 MG/2 ML VIAL IV ONE (10:40)
[2021-12-01] MEDS ORDERED: INFLUENZA VIRUS VACCINE 0.5 ML SYRINGE IM ONE (12:47)
[2021-12-01] MEDS: BUDESONIDE/FORMOTEROL 80-4.5 INHALER 6.9 GM INH SCH ×2 (13:43→22:55)
[2021-12-01] MEDS ORDERED: LEVOFLOXACIN INJ 750 MG/150 ML PREMIX IV SCH (18:00)
[2021-12-01] MEDS ORDERED: MONTELUKAST 10 MG TABLET PO SCH (21:00)
[2021-12-01] MEDS: guaiFENesin/DM ER 600-30 MG TABLET PO PRN (22:52)
[2021-12-01] MEDS: amLODIPine 5 MG TABLET PO SCH (22:52)
[2021-12-01] MEDS: ENOXAPARIN 40 MG/0.4 ML SYRINGE SUBCUT SCH (22:53)
[2021-12-02 06:42] LABS: Basophils % 0.4 % (0.0-0.8); Hematocrit 42.7 VOL% (35.7-47.0); Immature Granulocytes % 0.3 %; Immature Granulocytes Absolute 0.02 #; Lymphocytes # 1.6 10*3/uL (1.4-4.0); Mean Corpuscular HGB Conc 32.8 GM/DL (32-36); Mean Corpuscular Volume 85.6 FL (87-102); Mean Platelet Volume 10.6 FL (9.6-12.0); Monocytes % 13.1 % (1.7-12.7); Neutrophils % 64.2 % (38.7-73.9); Platelet Count 341 T/CUMM (130-400); Red Blood Count 4.99 MC/CUMM (3.8-5.5); Red Cell Distribution Width 14.6 % (9.3-17.3); White Blood Count 7.1 T/CUMM (4-12)
[2021-12-02 07:05] LABS: Albumin 2.7 G/DL (3.4-5.0); Bilirubin,Total 0.6 MG/DL (0.20-1.00); Calcium 8.7 MG/DL (8.5-10.1); Osmolality,Calculated 288.1 MOS/KG (273-304); Potassium 3.9 MMOL/L (3.5-5.1); Total Protein 7.1 G/DL (6.4-8.2)
[2021-12-02] MEDS ORDERED: AZITHROMYCIN 250 MG TABLET PO SCH (09:00)
[2021-12-02] MEDS: NICOTINE 21 MG/24 HR PATCH TRANSDERM SCH (09:09)
[2021-12-02] MEDS: INSULIN LISPRO 100 UNIT/ML SUBCUT SCH ×4 (09:11→21:15)
[2021-12-02] MEDS: MELOXICAM 7.5 MG TABLET PO SCH (09:11)
[2021-12-02] MEDS: FUROSEMIDE 40 MG/4 ML VIAL IV SCH (09:11)
[2021-12-02] MEDS: ASCORBIC ACID 500 MG TABLET PO SCH (09:11)
[2021-12-02] MEDS: MONTELUKAST 10 MG TABLET PO SCH (09:11)
[2021-12-02] MEDS: BUDESONIDE/FORMOTEROL 80-4.5 INHALER 6.9 GM INH SCH ×2 (09:11→21:14)
[2021-12-02] MEDS: PANTOPRAZOLE 40 MG TABLET PO SCH ×2 (09:11→21:13)
[2021-12-02] MEDS ORDERED: ONDANSETRON 8 MG PO PRN (10:10)
[2021-12-02] MEDS ORDERED: FUROSEMIDE 40 MG TABLET PO PRN (10:10)
[2021-12-02] MEDS ORDERED: GABAPENTIN 100 MG CAPSULE PO PRN (10:10)
[2021-12-02] MEDS ORDERED: ALBUTEROL INHALER 18 GM INH PRN (10:21)
[2021-12-02] MEDS: METOCLOPRAMIDE 10 MG TABLET PO SCH ×3 (12:06→21:13)
[2021-12-02] MEDS: LEVOFLOXACIN 750 MG TABLET PO SCH (12:06)
[2021-12-02] MEDS: methylPREDNISolone SOD SUC 40 MG/1 ML VIAL IV SCH (16:35)
[2021-12-02] MEDS ORDERED: BREO INH SCH (21:00)
[2021-12-02] MEDS ORDERED: ASPIRIN 325 MG TABLET PO SCH (21:00)
[2021-12-02] MEDS: amLODIPine 5 MG TABLET PO SCH (21:13)
[2021-12-02] MEDS: ENOXAPARIN 40 MG/0.4 ML SYRINGE SUBCUT SCH (21:13)
[2021-12-02] MEDS: metFORMIN 500 MG TABLET PO SCH (21:13)
[2021-12-02] MEDS: POTASSIUM CHLORIDE 20 MEQ PACK PO SCH (21:14)
[2021-12-03] MEDS: guaiFENesin/DM ER 600-30 MG TABLET PO PRN (02:01)
[2021-12-03] MEDS: methylPREDNISolone SOD SUC 40 MG/1 ML VIAL IV SCH ×2 (02:02→15:57)
[2021-12-03 02:43] LABS: Bacteria,Urine Occasional /HPF (Few); Bilirubin,Urine Negative (Negative); Blood, Urine Negative (Negative); Glucose,Urine (UA) 50 mg/dL (Negative); Ketones,Urine Negative (Negative); Mucus,Urine Occasional /LPF (Occasional); Nitrite,Urine Negative (Negative); Protein,Urine 30 MG/DL; RBC,Urine 1 /HPF (0-4); Squamous Epithelial Cell,Urine Many /HPF (0-10); Urine Appearance CLEAR (Clear); Urine Color Yellow (Yellow); Urine Specific Gravity 1.027 (1.001-1.035); Urine Urobilinogen < 2.0 EU/DL (<2.0)
[2021-12-03 05:24] LABS: Basophils % 0.4 % (0.0-0.8); Hematocrit 42.9 VOL% (35.7-47.0); Hemoglobin 14.2 GM/DL (12.0-16.0); Immature Granulocytes % 0.4 %; Immature Granulocytes Absolute 0.02 #; Lymphocytes # 1.4 10*3/uL (1.4-4.0); Lymphocytes % 26.7 % (21.3-54.2); Mean Corpuscular HGB Conc 33.1 GM/DL (32-36); Mean Corpuscular Volume 85.1 FL (87-102); Mean Platelet Volume 10.4 FL (9.6-12.0); Monocytes % 5.6 % (1.7-12.7); Neutrophils % 66.9 % (38.7-73.9); Platelet Count 339 T/CUMM (130-400); Red Blood Count 5.04 MC/CUMM (3.8-5.5); Red Cell Distribution Width 14.8 % (9.3-17.3); White Blood Count 5.4 T/CUMM (4-12)
[2021-12-03 05:53] LABS: Albumin 2.6 G/DL (3.4-5.0); Bilirubin,Total 0.6 MG/DL (0.20-1.00); Calcium 8.7 MG/DL (8.5-10.1); Osmolality,Calculated 282.4 MOS/KG (273-304); Potassium 4.3 MMOL/L (3.5-5.1)
[2021-12-03] MEDS ORDERED: ATORVASTATIN 20 MG TABLET PO SCH (09:00)
[2021-12-03] MEDS: MONTELUKAST 10 MG TABLET PO SCH (09:17)
[2021-12-03] MEDS: ASCORBIC ACID 500 MG TABLET PO SCH (09:17)
[2021-12-03] MEDS: METOCLOPRAMIDE 10 MG TABLET PO SCH ×3 (09:17→15:57)
[2021-12-03] MEDS: MELOXICAM 7.5 MG TABLET PO SCH (09:17)
[2021-12-03] MEDS: LEVOFLOXACIN 750 MG TABLET PO SCH (09:18)
[2021-12-03] MEDS: metFORMIN 500 MG TABLET PO SCH (09:18)
[2021-12-03] MEDS: PANTOPRAZOLE 40 MG TABLET PO SCH (09:18)
[2021-12-03] MEDS: POTASSIUM CHLORIDE 20 MEQ PACK PO SCH (09:18)
[2021-12-03] MEDS: INSULIN LISPRO 100 UNIT/ML SUBCUT SCH ×3 (09:19→15:58)
[2021-12-03] MEDS: BUDESONIDE/FORMOTEROL 80-4.5 INHALER 6.9 GM INH SCH (09:19)
[2021-12-03] MEDS: FUROSEMIDE 40 MG/4 ML VIAL IV SCH (09:19)
[2021-12-03] MEDS: NICOTINE 21 MG/24 HR PATCH TRANSDERM SCH (09:19)
[2021-12-03 16:35] VITALS: BP 129/77
[2021-12-03] MEDS ORDERED: POTASSIUM BICARB EFFERVESCENT 20 MEQ TAB.EFF PO SCH (21:00)
[2021-12-08] MEDS ORDERED: CHOLECALCIFEROL 5,000 UNIT TABLET PO SCH (09:00)
[2021-12-09] MEDS ORDERED: FERROUS SULFATE 325 MG TABLET PO SCH (09:00)
== END 2021-12-03 19:03 | disposition home or self-care (01) | DRG 177 ==
LOC: EDUNIT# → EDBD → N.ED 14:20 → SUATTDRO 17:04 → N.EDINP 17:04 → N.5E 12-01 11:58
PROVIDERS: ADMIT Internal Medicine; ATTEND Internal Medicine

== ENCOUNTER 2023-01-25 11:55 | Observation (INO) ==
[2023-01-25] MEDS ORDERED: methylPREDNISolone SOD SUC 125 MG/2 ML VIAL IV STA (16:03)
[2023-01-25] MEDS ORDERED: ALBUTEROL 2.5 MG/3 ML NEB RESP TX STA (16:03)
[2023-01-25 16:10] LABS: Basophils % 0.3 % (0.0-0.8); Eosinophils # 0.2 10*3/uL (0.0-0.87); Eosinophils % 2.4 % (0.00-10.9); Hematocrit 39.9 VOL% (35.7-47.0); Hemoglobin 13.2 GM/DL (12.0-16.0); Immature Granulocytes % 0.4 %; Immature Granulocytes Absolute 0.04 #; Lymphocytes # 1.7 10*3/uL (1.4-4.0); Lymphocytes % 18.3 % (21.3-54.2); Mean Corpuscular HGB Conc 33.1 GM/DL (32-36); Mean Corpuscular Volume 84.9 FL (87-102); Mean Platelet Volume 10.1 FL (9.6-12.0); Monocytes # 1.3 10*3/uL (0.11-0.8); Monocytes % 13.4 % (1.7-12.7); Neutrophils % 65.2 % (38.7-73.9); Platelet Count 346 T/CUMM (130-400); Red Cell Distribution Width 15.1 % (9.3-17.3); White Blood Count 9.39 T/CUMM (4-12)
[2023-01-25] MEDS ORDERED: ALBUTEROL/IPRATROPIUM 3 ML NEB RESP TX STA (16:24)
[2023-01-25 16:36] LABS: Albumin 3.3 G/DL (3.4-5.0); Bilirubin,Total 0.5 MG/DL (0.20-1.00); Calcium 9.3 MG/DL (8.5-10.1); Potassium 3.8 MMOL/L (3.5-5.1); Total Protein 7.1 G/DL (6.4-8.2)
[2023-01-25] MEDS ORDERED: AZITHROMYCIN INJ 500 MG in SODIUM CHLORIDE 0.9% 250 ML IV STA (18:04)
[2023-01-25 18:41] LABS: Arterial Base Excess iSTAT -3 MMOL/L (-2.5-2.5); Arterial Bicarbonate iSTAT 22.1 MMOL/L (20-26); Arterial O2 Saturation iSTAT 91 % (95-100); Arterial PCO2 iSTAT 39 MM HG (35-48); Arterial PO2 iSTAT 62 MM HG (80-95); Arterial Total CO2 iSTAT 23 MMO/L (23-27)
[2023-01-25] MEDS ORDERED: hydrALAZINE 20 MG/1 ML VIAL IV PRN (18:58)
[2023-01-25] MEDS ORDERED: NICOTINE 21 MG/24 HR PATCH TRANSDERM PRN (18:58)
[2023-01-25] MEDS ORDERED: ONDANSETRON 4 MG/2 ML VIAL IV PRN (18:58)
[2023-01-25] MEDS ORDERED: ZALEPLON 5 MG CAPSULE PO PRN (18:58)
[2023-01-25] MEDS ORDERED: ACETAMINOPHEN 325 MG TABLET PO PRN (18:58)
[2023-01-25] MEDS ORDERED: diphenhydrAMINE CAP 25 MG CAPSULE PO PRN (18:58)
[2023-01-25] MEDS ORDERED: guaiFENesin/DM ER 600-30 MG TABLET PO PRN (18:58)
[2023-01-25] MEDS ORDERED: ALBUTEROL/IPRATROPIUM 3 ML NEB RESP TX SCH (19:00)
[2023-01-25] MEDS ORDERED: ALBUTEROL/IPRATROPIUM 3 ML NEB RESP TX PRN (19:05)
[2023-01-25] MEDS: ARFORMOTEROL 15 MCG/2 ML NEB RESP TX SCH (19:34)
[2023-01-25] MEDS: BUDESONIDE 0.5 MG/2 ML NEB RESP TX SCH (19:34)
[2023-01-26] MEDS: methylPREDNISolone SOD SUC 125 MG/2 ML VIAL IV SCH ×4 (00:45→17:53)
[2023-01-26] MEDS: FUROSEMIDE 40 MG/4 ML VIAL IV SCH ×3 (00:48→16:42)
[2023-01-26] MEDS: LEVOFLOXACIN INJ 750 MG/150 ML PREMIX IV SCH (00:50)
[2023-01-26 05:39] LABS: Basophils % 0.1 % (0.0-0.8); Hematocrit 39.4 VOL% (35.7-47.0); Hemoglobin 13.1 GM/DL (12.0-16.0); Immature Granulocytes % 0.3 %; Immature Granulocytes Absolute 0.03 #; Lymphocytes # 0.9 10*3/uL (1.4-4.0); Lymphocytes % 10.2 % (21.3-54.2); Mean Corpuscular HGB Conc 33.2 GM/DL (32-36); Mean Corpuscular Volume 84.4 FL (87-102); Mean Platelet Volume 10.9 FL (9.6-12.0); Monocytes % 0.5 % (1.7-12.7); Neutrophils % 88.9 % (38.7-73.9); Platelet Count 337 T/CUMM (130-400); Red Blood Count 4.67 MC/CUMM (3.8-5.5); White Blood Count 8.76 T/CUMM (4-12)
[2023-01-26 06:02] LABS: Calcium 9.4 MG/DL (8.5-10.1); Osmolality,Calculated 287.7 MOS/KG (273-304); Potassium 3.6 MMOL/L (3.5-5.1)
[2023-01-26] MEDS: BUDESONIDE 0.5 MG/2 ML NEB RESP TX SCH ×2 (08:10→19:49)
[2023-01-26] MEDS: ARFORMOTEROL 15 MCG/2 ML NEB RESP TX SCH ×2 (08:10→19:49)
[2023-01-26] MEDS: PANTOPRAZOLE 40 MG TABLET PO SCH (09:00)
[2023-01-26] MEDS: INSULIN LISPRO 100 UNIT/ML SUBCUT SCH ×4 (09:06→18:03)
[2023-01-26] MEDS ORDERED: cloNIDine 0.1 MG TABLET PO PRN (09:28)
[2023-01-26] MEDS ORDERED: LOSARTAN 50 MG TABLET PO SCH (10:30)
[2023-01-26] MEDS: ASPIRIN 325 MG TABLET PO SCH (10:49)
[2023-01-26] MEDS: ASCORBIC ACID 500 MG TABLET PO SCH (10:49)
[2023-01-26] MEDS: amLODIPine 10 MG TABLET PO SCH (10:49)
[2023-01-26] MEDS: ATORVASTATIN 20 MG TABLET PO SCH (10:49)
[2023-01-26] MEDS: MONTELUKAST 10 MG TABLET PO SCH (21:17)
[2023-01-26] MEDS: LOSARTAN 50 MG TABLET PO SCH (21:17)
[2023-01-26] MEDS: POTASSIUM BICARB EFFERVESCENT 20 MEQ TAB.EFF PO SCH (21:18)
[2023-01-27] MEDS: INSULIN LISPRO 100 UNIT/ML SUBCUT SCH ×5 (00:56→23:27)
[2023-01-27] MEDS: LEVOFLOXACIN INJ 750 MG/150 ML PREMIX IV SCH (01:02)
[2023-01-27] MEDS: methylPREDNISolone SOD SUC 125 MG/2 ML VIAL IV SCH ×5 (01:03→23:27)
[2023-01-27] MEDS: ARFORMOTEROL 15 MCG/2 ML NEB RESP TX SCH ×2 (06:54→18:55)
[2023-01-27] MEDS: BUDESONIDE 0.5 MG/2 ML NEB RESP TX SCH ×2 (06:54→18:55)
[2023-01-27 08:18] LABS: Calcium 9.1 MG/DL (8.5-10.1); Osmolality,Calculated 284.7 MOS/KG (273-304); Potassium 3.4 MMOL/L (3.5-5.1)
[2023-01-27] MEDS: FUROSEMIDE 40 MG/4 ML VIAL IV SCH ×2 (09:31→18:20)
[2023-01-27] MEDS: Fluticasone Furoate-Vilanterol [Breo Ellipta] 200-25 mcg/dose Bl INH SCH (09:32)
[2023-01-27] MEDS: amLODIPine 10 MG TABLET PO SCH (09:32)
[2023-01-27] MEDS: ASPIRIN 325 MG TABLET PO SCH (09:32)
[2023-01-27] MEDS: ATORVASTATIN 20 MG TABLET PO SCH (09:32)
[2023-01-27] MEDS: PANTOPRAZOLE 40 MG TABLET PO SCH (09:32)
[2023-01-27] MEDS: POTASSIUM BICARB EFFERVESCENT 20 MEQ TAB.EFF PO SCH ×2 (09:32→21:07)
[2023-01-27] MEDS: ASCORBIC ACID 500 MG TABLET PO SCH (09:33)
[2023-01-27] MEDS ORDERED: ERGOCALCIFEROL 50,000 UNIT CAPSULE PO SCH (10:30)
[2023-01-27] MEDS: MONTELUKAST 10 MG TABLET PO SCH (21:08)
[2023-01-27] MEDS: LOSARTAN 50 MG TABLET PO SCH (21:08)
[2023-01-28] MEDS: LEVOFLOXACIN INJ 750 MG/150 ML PREMIX IV SCH (00:41)
[2023-01-28] MEDS: methylPREDNISolone SOD SUC 125 MG/2 ML VIAL IV SCH ×2 (06:16→11:59)
[2023-01-28] MEDS: INSULIN LISPRO 100 UNIT/ML SUBCUT SCH ×2 (06:17→11:06)
[2023-01-28] MEDS: ARFORMOTEROL 15 MCG/2 ML NEB RESP TX SCH (07:20)
[2023-01-28] MEDS: BUDESONIDE 0.5 MG/2 ML NEB RESP TX SCH (07:20)
[2023-01-28] MEDS: ASCORBIC ACID 500 MG TABLET PO SCH (08:45)
[2023-01-28] MEDS: PANTOPRAZOLE 40 MG TABLET PO SCH (08:46)
[2023-01-28] MEDS: amLODIPine 10 MG TABLET PO SCH (08:46)
[2023-01-28] MEDS: ATORVASTATIN 20 MG TABLET PO SCH (08:46)
[2023-01-28] MEDS: FUROSEMIDE 40 MG/4 ML VIAL IV SCH (08:46)
[2023-01-28] MEDS: POTASSIUM BICARB EFFERVESCENT 20 MEQ TAB.EFF PO SCH (08:46)
[2023-01-28] MEDS: ASPIRIN 325 MG TABLET PO SCH (08:46)
[2023-01-28] MEDS: Fluticasone Furoate-Vilanterol [Breo Ellipta] 200-25 mcg/dose Bl INH SCH (08:49)
[2023-01-28] MEDS ORDERED: MAGNESIUM OXIDE 400 MG TABLET PO SCH (09:00)
[2023-01-28 11:18] VITALS: BP 141/72
== END 2023-01-28 12:10 | disposition home or self-care (01) ==
LOC: N.ED 11:55 → N.EDINP 11:55 → SUATTDRO 18:58 → N.EDINP 22:12 → N.3E 22:14
PROVIDERS: ADMIT Internal Medicine; ATTEND Internal Medicine